=== PATIENT | male | born 1955 | race Caucasian/White ===

== ENCOUNTER 2016-11-03 12:37 | Emergency (ER) | payer MEDICARE, OTHER ==
[~2016-11-03] VITALS: Ht 182.9 cm; Wt 117.9 kg
[~2016-11-03 12:37] MED LIST: CARI350T PO; CLON2TAB PO; ESCI5TAB PO; MORP15TA PO
[2016-11-03] MEDS ORDERED: KETOROLAC TROMETHAMINE INJ 30 MG/ML VIAL IV ONE (13:30)
[2016-11-03 13:32] LABS: BASOPHILS # (AUTO) 0.1 /CMM (0.0-0.2); BASOPHILS % (AUTO) 2.2 % (0.0-2.0); DIFF TOTAL % 100 %; EOSINOPHILS # (AUTO) 0.1 /CMM (0.0-0.7); EOSINOPHILS % (AUTO) 2.5 % (0.0-6.0); HEMATOCRIT 39 % (39-51); HEMOGLOBIN 13.4 g/dL (13.5-17.5); LYMPHOCYTES # (AUTO) 0.9 /CMM (0.8-4.8); LYMPHOCYTES % (AUTO) 29.7 % (20.0-44.0); MEAN CORPUSCULAR HEMOGLOBIN 32 PG (26.0-33.0); MEAN CORPUSCULAR HGB CONC 34 g/dl (31.0-36.0); MEAN CORPUSCULAR VOLUME 93 fL (80-96); MONOCYTES # (AUTO) 0.2 /CMM (0.1-1.30); MONOCYTES % (AUTO) 7.8 % (2.0-12.0); NEUTROPHILS # (AUTO) 1.7 /CMM (1.8-8.9); NEUTROPHILS % (AUTO) 57.8 % (43.0-81.0); PLATELET COUNT (AUTO) 75 /CMM (150-450)
[2016-11-03] MEDS ORDERED: KETOROLAC TROMETHAMINE INJ 30 MG/ML VIAL ONE ×2 (13:39→13:45)
[2016-11-03 13:43] LABS: CALCIUM, SERUM 7.7 mg/dL (8.5-10.1); CREATININE 0.9 mg/dL (0.6-1.3); POTASSIUM 3.6 mmol/L (3.5-5.1)
[2016-11-03 13:49] LABS: BILIRUBIN,DIRECT 0.1 mg/dL (0.0-0.2); BILIRUBIN,TOTAL 0.3 mg/dL (0.2-1.0); INDIRECT BILIRUBIN 0.2 mg/dL (0.0-1.1); TOTAL PROTEIN, SERUM 6.4 g/dL (6.4-8.2)
[2016-11-03 14:49] VITALS: BP 125/75
[2016-11-03 15:10] LABS: EOSINOPHILS % (MANUAL) 2 % (0-4); LYMPHOCYTES % (MANUAL) 27 % (16-48); PLATELET ESTIMATE DECREASED
[2016-11-03 15:11] LABS: ANISOCYTOSIS 1+
== END 2016-11-03 14:52 | disposition home or self-care (01) ==
LOC: ER 12:39
DX: M54.5 Low back pain (principal); I10 Essential (primary) hypertension; I50.9 Heart failure, unspecified; J45.909 Unspecified asthma, uncomplicated; E11.9 Type 2 diabetes mellitus without complications; G62.9 Polyneuropathy, unspecified; F41.0 Panic disorder [episodic paroxysmal anxiety]; Z95.811 Presence of heart assist device; Z86.73 Personal history of transient ischemic attack (TIA), and cerebral infarction without residual deficits; F17.210 Nicotine dependence, cigarettes, uncomplicated; F10.10 Alcohol abuse, uncomplicated
CPT/HCPCS: 36415; 80048; 80076; 82553; 85025; 96374; 99284; A4606; J1885 ×2; Z7610

== ENCOUNTER 2017-01-30 20:29 | Emergency (ER) | payer MEDICARE, OTHER ==
[~2017-01-30] VITALS: Ht 182.9 cm; Wt 113.4 kg
--- NOTE | 2017-01-30 20:50 | NUR ---
PT PRESENTED TO THE ER WITH A C/O COUGH WITH CONGESTION. PT IS SATURATING AT 97% ON RA. PT HAS BILATERAL RHONCHI NOTED. PT IS A PACK A DAY SMOKER. PT USES A CANE TO AMBULATE. PT IS ON YOANNA MONITOR AND CONTINOUS PULSE OX.
[2017-01-30 20:57] LABS: BASOPHILS % (AUTO) 0.4 % (0.0-2.0); EOSINOPHILS # (AUTO) 0.1 /CMM (0.0-0.7); EOSINOPHILS % (AUTO) 1.4 % (0.0-6.0); HEMATOCRIT 38 % (39-51); HEMOGLOBIN 13.2 g/dL (13.5-17.5); MEAN CORPUSCULAR HEMOGLOBIN 32 PG (26.0-33.0); MEAN CORPUSCULAR HGB CONC 34 g/dl (31.0-36.0); MEAN CORPUSCULAR VOLUME 93 fL (80-96); MONOCYTES # (AUTO) 0.4 /CMM (0.1-1.30); MONOCYTES % (AUTO) 10.3 % (2.0-12.0); NEUTROPHILS # (AUTO) 2.5 /CMM (1.8-8.9); NEUTROPHILS % (AUTO) 62.9 % (43.0-81.0); PLATELET COUNT (AUTO) 71 /CMM (150-450); RDW COEFFICIENT OF VARIATION 12.5 (11.5-15.0); RED BLOOD CELL COUNT(AUTO) 4.12 MIL/uL (4.5-6.0)
[2017-01-30 21:06] LABS: CALCIUM, SERUM 8.6 mg/dL (8.5-10.1); CARBON DIOXIDE 25 mmol/L (21-32); CHLORIDE 103 mmol/L (98-107); CREATININE 0.9 mg/dL (0.6-1.3); GFR 86 mL/min (>60); GLUCOSE 106 mg/dL (74-106); POTASSIUM 4.3 mmol/L (3.5-5.1); SODIUM SERUM 135 mmol/L (136-145); UREA NITROGEN, BLOOD 20 mg/dL (7-18)
[2017-01-30 21:12] LABS: INR 0.95 (0.87-1.13); PROTHROMBIN TIME 9.9 SECS (9.5-12.7)
[2017-01-30 21:15] LABS: TROPONIN I < 0.017 ng/mL (0.00-0.056)
[2017-01-30 21:19] LABS: B-TYPE NATRIURETIC PEPTIDE 114 PG/ML (0-125)
[2017-01-30] MEDS ORDERED: methylPREDNISolone SOD SUCC 125 MG/2ML VIAL IV ONE (21:30)
[2017-01-30] MEDS ORDERED: LORAZEPAM 1 MG TABLET PO ONE (21:30)
[2017-01-30] MEDS ORDERED: ALBUTEROL FS 2.5 MG/3 ML VIAL.NEB NEB ONE (21:30)
[2017-01-30] MEDS ORDERED: IPRATROPIUM NEB FS 0.5 MG/2.5 ML AMPUL.NEB NEB ONE (21:30)
[2017-01-30] MEDS ORDERED: IPRATROPIUM NEB FS 0.5 MG/2.5 ML AMPUL.NEB ONE (21:38)
[2017-01-30] MEDS ORDERED: ALBUTEROL FS 2.5 MG/3 ML VIAL.NEB ONE (21:38)
--- NOTE | 2017-01-30 21:40 | NUR ---
BREATHING TX STARTED.
[2017-01-30 21:41] LABS: BAND % (MANUAL) 3 % (0.0-5.0); BASOPHILS % (MANUAL) 0 % (0.0-2.0); EOSINOPHILS % (MANUAL) 2 % (0-4); LYMPHOCYTES % (MANUAL) 24 % (16-48); MONOCYTES % (MANUAL) 3 % (0-11.0); NEUTROPHILS % (MANUAL) 68 (42-76)
[2017-01-30] MEDS ORDERED: LORAZEPAM 1 MG TABLET ONE (21:41)
[2017-01-30] MEDS ORDERED: methylPREDNISolone SOD SUCC 125 MG/2ML VIAL ONE (21:41)
[2017-01-30 21:42] LABS: PLATELET ESTIMATE DECREASED
[2017-01-30 22:01] VITALS: BP 135/66
--- NOTE | 2017-01-30 22:01 | NUR ---
IV removed. Catheter intact and site benign. Pressure and 4x4 applied to site. No bleeding noted.Patient discharged to home in stable condition. Written and verbal after care instructions given. Patient verbalizes understanding of instruction AND RX. PT AMBULATED OUT USING HIS CANE. PT IS TAKING THE BUS HOME. DR. BEDOYA IS AWARE.
== END 2017-01-30 22:02 | disposition home or self-care (01) ==
LOC: ER 20:35
DX: J44.0 Chronic obstructive pulmonary disease with (acute) lower respiratory infection (principal); J20.9 Acute bronchitis, unspecified; F17.210 Nicotine dependence, cigarettes, uncomplicated; I10 Essential (primary) hypertension; G40.909 Epilepsy, unspecified, not intractable, without status epilepticus; I50.9 Heart failure, unspecified; J45.909 Unspecified asthma, uncomplicated; E11.9 Type 2 diabetes mellitus without complications; G62.9 Polyneuropathy, unspecified; G89.29 Other chronic pain; Z86.73 Personal history of transient ischemic attack (TIA), and cerebral infarction without residual deficits
CPT/HCPCS: 36415; 71010; 80048; 83880; 84484; 85025; 85730; 93005; 94640 ×2; 96374; 99285; A4606; J2930; Z7610

== ENCOUNTER 2019-12-10 12:29 | Inpatient (IN) | payer MEDICARE, MEDICAID ==
[~2019-12-10] VITALS: Ht 185.4 cm; Wt 108.4 kg
[2019-12-10] VITALS (7 sets, daily range): BP systolic 120–145; BP diastolic 68–98
--- NOTE | 2019-12-10 12:30 | NUR ---
PT BIBRA 39 FROM HOME C/O HIGH BLOOD SUGAR HI ON THE GLUCOMETER, PT IS AAOX4, NOT IN RESPIRATORY DISTRESS, HOOKED TO MNITOR, KEPT RESTED AND COMFORTABLE, WILL CONTINUE TO MONITOR.
--- NOTE | 2019-12-10 12:37 | NUR ---
SEEN AND EXAMINED BY ESTER GRIJALVA NP.
--- NOTE | 2019-12-10 12:40 | NUR ---
IV LINE ESTABLISHED, BLOOD DRAWN AND SENT TO LAB.
--- NOTE | 2019-12-10 12:45 | NUR ---
URINE SPECIMEN COLLECTED AND SENT TO LAB.
[2019-12-10] MEDS ORDERED: KETOROLAC TROMETHAMINE INJ 30 MG/ML VIAL ONE (12:54)
[2019-12-10 12:59] LABS: BASOPHILS # (AUTO) 0.1 /CMM (0.0-0.2); BASOPHILS % (AUTO) 1.2 % (0.0-2.0); EOSINOPHILS % (AUTO) 0.5 % (0.0-6.0); HEMATOCRIT 45 % (39-51); HEMOGLOBIN 15.2 g/dL (13.5-17.5); LYMPHOCYTES # (AUTO) 1.5 /CMM (0.8-4.8); LYMPHOCYTES % (AUTO) 20.2 % (20.0-44.0); MEAN CORPUSCULAR HGB CONC 33 g/dl (31.0-36.0); MEAN CORPUSCULAR VOLUME 93 fL (80-96); MONOCYTES % (AUTO) 13.2 % (2.0-12.0); NEUTROPHILS # (AUTO) 4.8 /CMM (1.8-8.9); NEUTROPHILS % (AUTO) 64.9 % (43.0-81.0); PLATELET COUNT (AUTO) 94 /CMM (150-450); RED BLOOD CELL COUNT(AUTO) 4.88 MIL/uL (4.5-6.0); WHITE BLOOD COUNT (AUTO) 7.4 K/uL (4.3-11.0)
[2019-12-10] MEDS ORDERED: KETOROLAC TROMETHAMINE INJ 30 MG/ML VIAL IV ONE (13:00)
[2019-12-10] MEDS ORDERED: IV NS 0.9% 1,000 ML BAG IV ONE ×2 (13:00→13:30)
[2019-12-10 13:01] LABS: APPEARANCE,URINE Clear (CLEAR); BILIRUBIN,URINE Negative (NEGATIVE); BLOOD, URINE Negative Ery/uL (NEGATIVE); COLOR,URINE Yellow (YELLOW); KETONES,URINE Negative (NEGATIVE); LEUKOCYTE ESTERASE ,URINE Negative (NEGATIVE); NITRITE, URINE Negative (NEGATIVE); PROTEIN,URINE Negative (NEGATIVE); UGLUCOSE >=1000 mg/dL (NEGATIVE); UROBILINOGEN,URINE 0.2 EU/dL (0.2)
[2019-12-10 13:03] LABS: BACTERIA,URINE Rare /HPF (None Seen); RBC,URINE 0-2 /HPF (0-2); SQUAMOUS EPITHELIAL CELL,UR Few /HPF (None Seen); WBC,URINE 0-2 /HPF (0-3)
[2019-12-10 13:14] LABS: ALBUMIN 3.3 g/dL (3.4-5.0); BILIRUBIN,DIRECT 0.4 mg/dL (0.0-0.2); BILIRUBIN,TOTAL 1.1 mg/dL (0.2-1.0); CALCIUM, SERUM 9.1 mg/dL (8.5-10.1); CREATININE 1.6 mg/dL (0.6-1.3); POTASSIUM 4.4 mmol/L (3.5-5.1); TOTAL PROTEIN, SERUM 7.4 g/dL (6.4-8.2)
[2019-12-10] MEDS ORDERED: INSULIN REGULAR, HUMAN 100 UNIT/ML 10 ML VIAL ONE (13:24)
[2019-12-10] MEDS ORDERED: INSULIN REGULAR, HUMAN 100 UNIT/ML 10 ML VIAL SQ ONE (13:30)
[2019-12-10 13:32] LABS: BAND % (MANUAL) 1 % (0.0-5.0); EOSINOPHILS % (MANUAL) 2 % (0-4); LYMPHOCYTES % (MANUAL) 22 % (16-48); MONOCYTES % (MANUAL) 12 % (0-11.0); NEUTROPHILS % (MANUAL) 63 (42-76)
[2019-12-10] MEDS ORDERED: ATOR10TA PO (13:32)
[2019-12-10] MEDS ORDERED: GUAI100S11 PO (13:32)
[2019-12-10] MEDS ORDERED: FLUT16SP16 (13:32)
[2019-12-10] MEDS ORDERED: CLON2TAB11 PO (13:32)
[2019-12-10] MEDS ORDERED: PHEN100C12 PO (13:32)
[2019-12-10] MEDS ORDERED: METF-442 PO (13:32)
[2019-12-10] MEDS ORDERED: [UNRECOGNIZED DRUG - REMARK] SQ (13:34)
[2019-12-10 13:45] LABS: PHOSPHORUS 4.2 mg/dL (2.5-4.9)
--- NOTE | 2019-12-10 13:51 | NUR ---
EWA BROWN [phone] ---- CELL [phone]
--- NOTE | 2019-12-10 13:54 | NUR ---
CALLED NURSING SUPP FOR TELE BED.
--- NOTE | 2019-12-10 13:54 | NUR ---
CALLED FOR TELE BED AND SUBMITTED MOVE SHEET TO ADMITTING.
--- NOTE | 2019-12-10 14:28 | NUR ---
GOT [phone]
--- NOTE | 2019-12-10 14:29 | NUR ---
JUICE MIXER AT BEDSIDE FOR XRAY.
[2019-12-10] MEDS ORDERED: IV NS 0.9% 100 ML IV SCH (14:30)
[2019-12-10] MEDS ORDERED: BLOOD SUGAR DIAGNOSTIC 1 EACH STRIP MC SCH (14:30)
[2019-12-10] MEDS ORDERED: ONDANSETRON HCL/PF 4 MG/2 ML VIAL IV PRN (14:30)
[2019-12-10] MEDS ORDERED: BLOOD SUGAR DIAGNOSTIC 1 EACH STRIP IN SCH (14:30)
[2019-12-10] MEDS ORDERED: ACETAMINOPHEN 650 MG/20.3 ML UDC PO PRN (14:30)
[2019-12-10] MEDS ORDERED: DEXTROSE 50%-WATER 50 ML DISP.SYRIN IV PRN (14:30)
[2019-12-10] MEDS ORDERED: INSULIN REGULAR, HUMAN 100 UNIT/ML 3 ML VIAL SQ PRN (14:30)
[2019-12-10] MEDS ORDERED: IPRATROPIUM NEB FS 0.5 MG/2.5 ML AMPUL.NEB NEB PRN (15:00)
[2019-12-10] MEDS ORDERED: LEVALBUTEROL HCL NEB 1.25 MG/0.5 ML VIAL.NEB NEB PRN (15:00)
[2019-12-10] MEDS ORDERED: INSULIN GLARGINE, 100 UNIT/ML CARTRIDGE SQ SCH (15:00)
[2019-12-10] MEDS ORDERED: FLUTICASONE PROPIONATE 16 GM BOTTLE NS PRN (15:00)
[2019-12-10] MEDS ORDERED: GUAIFENESIN 300 MG/15 ML UDC PO PRN (15:00)
[2019-12-10] MEDS ORDERED: clonazePAM 2 MG TABLET PO PRN (15:00)
--- NOTE | 2019-12-10 15:00 | NUR ---
TECH AT BEDSIDE FOR US.
--- NOTE | 2019-12-10 15:05 | NUR ---
REPORT GIVEN TO SUPRIYA VILLA.
[2019-12-10] MEDS ORDERED: ALBUTEROL FS 2.5 MG/0.5 ML VIAL.NEB NEB PRN (15:30)
[2019-12-10] MEDS: ALBUTEROL FS 2.5 MG/0.5 ML VIAL.NEB NEB SCH ×2 (15:30→23:30)
[2019-12-10] MEDS ORDERED: LEVALBUTEROL HCL NEB 1.25 MG/0.5 ML VIAL.NEB NEB SCH (15:30)
[2019-12-10] MEDS: IPRATROPIUM NEB FS 0.5 MG/2.5 ML AMPUL.NEB NEB SCH ×2 (15:30→23:30)
[2019-12-10] MEDS ORDERED: ENOXAPARIN SODIUM 40 MG/0.4 ML DISP.SYRIN SQ SCH (16:00)
--- NOTE | 2019-12-10 16:01 | NUR ---
PER ADMITTING MD BROWN. PT BE UPGRADED TO ICU. AND CALL ADMITTING DR FOR INSULIN DRIP ORDER.
--- NOTE | 2019-12-10 16:01 | NUR ---
Chip Osorio M.D. Office Address [address] [facility] [address] [place] [address] Office
[2019-12-10] MEDS ORDERED: AZITHROMYCIN 500 MG in IV D5W 250 ML IV SCH (17:00)
[2019-12-10] MEDS ORDERED: PHENYTOIN EXTENDED RELEASE 100 MG CAPSULE PO SCH (17:00)
--- NOTE | 2019-12-10 17:23 | NUR ---
REPORT GIVEN TO MORENA EPPS AT ICU. PT TRANSPORTED. STABLE GUARDED.
[2019-12-10] MEDS: IV NS 0.9% 1,000 ML IV PRN (17:28)
[2019-12-10] MEDS ORDERED: INSULIN ASPART/LISPRO 100 UNIT/ML CARTRIDGE SQ SCH (17:30)
[2019-12-10] MEDS: ATORVASTATIN 10 MG TABLET PO SCH (17:36)
--- NOTE | 2019-12-10 17:45 | NUR ---
NEEDLE MOLDER NOTE RECEIVED PATIENT FROM ER WITH DX HYPERGLYCEMIA AND HYPERNATREMIA, UNDER CARE DR BROWN ,ALERT ORIENTED X3, PLACED ON TELE MONITOR SR HR 93 , BELONGING CHECKED , STARTED ON IVF ORDERED AND INSULIN DRIP ORDERED BY DR BROWN , HOSPITAL ORIENTATION DONE ,VS TAKEN ,RESPIRATION EVEN UNLABORED, BED IN LOWEST AND LOCKED POSITION , CALL LIGHT WITHIN REACH , , PLAN OF CARE DISCUSSED WITH PATIENT, WILL CONT TO MONITOR CLOSELY
--- NOTE | 2019-12-10 17:45 | NUR ---
VERIFIED ADMISSION ORDERS BY DR. LEIGHA BROWN, START INSULIN GTT 5UNITS/HR THEN FOLLOW NON DKA ALG. 1 INSULIN DRIP PROTOCOL. OKAY TO RESUME PATIENT DIET ORDERED.
[2019-12-10] MEDS ORDERED: INSULIN REGULAR, HUMAN 100 UNIT in IV NS 0.9% 99 ML IV PRN ×2 (18:00)
[2019-12-10] MEDS: PANTOPRAZOLE 40 MG TABLET.DR PO SCH (18:12)
[2019-12-10] MEDS: ASPIRIN EC 81 MG TABLET.DR PO SCH (18:12)
--- NOTE | 2019-12-10 18:20 | NUR ---
INSULIN DRIP STARTED AT 5 UNITS/HR- BS 548.
--- NOTE | 2019-12-10 18:21 | NUR ---
FINAL INSPECTOR NOTE , ABLE TO EAT SELF ,HAVING DINNER
--- NOTE | 2019-12-10 18:25 | NUR ---
PHARMACY CALLED RE: ANTIBIOTICS ROCEPHIN AND ZITHROMAX NOT AVAILABLE YET, TO DELIVER.
[2019-12-10] MEDS: ZITHROMAX 500 MG/250 ML D5W IV SCH ×2 (18:59)
[2019-12-10] MEDS: CEFTRIAXONE 1 G in IV D5W 50 ML IV SCH (18:59)
[2019-12-10] MEDS: BLOOD SUGAR DIAGNOSTIC 1 EACH STRIP IN SCH ×5 (19:03→23:13)
--- NOTE | 2019-12-10 19:07 | NUR ---
OVEN HEATER HELPER NOTE BLOOD SUGAR NOW 580 MG\DL PER PROTOCOL, INCREASED INSULIN DRIP AT 6 UNIT ,WILL MONITOR BLOOD SUGAR IN 1 HOUR PER PROTOCOL
--- NOTE | 2019-12-10 19:30 | NUR ---
INTAKE COUNSELOR NOTE, RECEIVED PATIENT AWAKE, ALERT ORIENTED X3, AT ROOM AIR, BREATHING EVEN AND UNLABORED, NO SOB/ACUTE DISTRESS NOTED AT THI TIME, NSR IN TELE MONITOR WITH HR IN 80S AT THIS TIME, IVF AND INSULIN DRIP INFUSING AT THIS TIME ORDERED, ALSO VANCOMYCIN INFUSING AT THIS TIME, BED IN LOWEST AND LOCKED POSITION , CALL LIGHT WITHIN REACH , WILL CONTINUE TO MONITOR CLOSELY.
--- NOTE | 2019-12-10 20:08 | NUR ---
SUPRIYA NOTES, BLOOD SUGAR LEVEL AT 1999 580MG/dL, SWITCH TO ALGORITHM #2 PER PROTOCOL, WILL CONTINUE TO MONITOR CLOSELY. Addendum: 12/10/19 at 2108 by JAYCEE HUNG RN INCREASED FROM 6UNITS TO 10UNITS.
[2019-12-10 20:50] LABS: PHOSPHORUS 3.5 mg/dL (2.5-4.9); POTASSIUM 3.6 mmol/L (3.5-5.1)
--- NOTE | 2019-12-10 21:05 | NUR ---
SUPRIYA NOTES, BLOOD SUGAR LEVEL AT 2100 521MGdL, SWITCH TO ALGORITHM #3 PER PROTOCOL, WILL CONTINUE TO MONITOR CLOSELY. Addendum: 12/10/19 at 2109 by JAYCEE HUNG RN INCREASED FROM 10 UNITS TO 16 UNITS.
--- NOTE | 2019-12-10 22:08 | NUR ---
RN NOTE. BLOOD SUGAR IS 399. PT ON SAME DOSE INSULIN DRIP 16 UNITS,. WILL CONTINUE TO MONITOR.
[2019-12-10] MEDS ORDERED: POTASSIUM CHLORIDE 20 MEQ TAB.PRT.SR PO ONE (22:30)
--- NOTE | 2019-12-10 22:30 | NUR ---
RN NOTES, DR BROWN CALLED TO GET REPORT FOR PATIENT CONDITION AND LABS, PER MD TO INCREASED IVF TO 150ML/HR, AND GIVE KCL 40MEQ POX1 NOW AND SAME DOSE IN 4HRS, ALSO ASKED MD IF HE WANTS TO KEEP PATIENT NPO AT THIS TIME, SINCE BLOOD SUGAR STILL HIGH, AND PER MD PATIENT CAN EAT, NO NEED FOR NPO, NOTED AND CARRIED OUT.
[2019-12-10 23:39] LABS: POTASSIUM 3.5 mmol/L (3.5-5.1)
[2019-12-11] VITALS (13 sets, daily range): BP systolic 95–137; BP diastolic 53–73
--- NOTE | 2019-12-11 00:05 | NUR ---
RN NOTES, BLOOD SUGAR LEVEL 297MG/DL, INSULIN DRIP DECREASED FROM 14U TO 10U, WILL CONTINUE TO MONITOR CLOSELY.
[2019-12-11] MEDS: BLOOD SUGAR DIAGNOSTIC 1 EACH STRIP IN SCH ×8 (00:07→21:47)
[2019-12-11] MEDS: IV NS 0.9% 1,000 ML IV PRN ×2 (01:53→11:23)
--- NOTE | 2019-12-11 02:14 | NUR ---
RN NOTES, BLOOD SUGAR LEVEL AT 0200 209MG/DL AT THIS TIME, DECREASED INSULIN DRIP FROM 12 TO 5U. WILL CONT TO MONITOR CLOSELY.
--- NOTE | 2019-12-11 04:12 | NUR ---
RN NOTES, CALLED DR BROWN AND INFORMED THAT PATIENT BLOOD SUGAR LEVEL IS 144MG/DL AT 0400, PER MD TO DC INSULIN DRIP COMPLETELY, CONTINUE CHECKING BLOOD SUGAR Q1HR FOR 2 MORE HOURS, AND AFTER THAT ACCUCHECK Q4HRS WITH MODERATE SLIDING SCALE WITH NOVOLOG COVERAGE, PLUS LANTUS 20 UNITS QAM, NOTED AND CARRIED OU, WILL CONTINUE TO MONITOR CLOSELY.
[2019-12-11] MEDS ORDERED: DEXTROSE 50%-WATER 50 ML DISP.SYRIN IV PRN ×5 (04:30→08:40)
[2019-12-11] MEDS ORDERED: INSULIN ASPART/LISPRO 100 UNIT/ML CARTRIDGE SQ PRN (05:00)
[2019-12-11] MEDS ORDERED: BLOOD SUGAR DIAGNOSTIC 1 EACH STRIP IN SCH ×4 (05:00→08:00)
--- NOTE | 2019-12-11 05:10 | NUR ---
RN NOTES, ACCUCHEK DONE AT 0500 PER MD, WITH BLOOD SUGAR LEVEL 170MG/DL, ONE MORE ACCUCHECK AT 0600, AND AFTER THAT Q4HRS PER DR BROWN, ALSO PER MD TO DECREASED THE IVF FROM 150ML/HR TO 80ML/HR.
[2019-12-11 05:48] LABS: BASOPHILS % (AUTO) 0.6 % (0.0-2.0); EOSINOPHILS % (AUTO) 1.9 % (0.0-6.0); HEMATOCRIT 39 % (39-51); HEMOGLOBIN 13.8 g/dL (13.5-17.5); LYMPHOCYTES # (AUTO) 1.4 /CMM (0.8-4.8); LYMPHOCYTES % (AUTO) 32.1 % (20.0-44.0); MEAN CORPUSCULAR HGB CONC 35 g/dl (31.0-36.0); MEAN CORPUSCULAR VOLUME 89 fL (80-96); MONOCYTES # (AUTO) 0.4 /CMM (0.1-1.30); MONOCYTES % (AUTO) 9.8 % (2.0-12.0); NEUTROPHILS # (AUTO) 2.5 /CMM (1.8-8.9); NEUTROPHILS % (AUTO) 55.6 % (43.0-81.0); PLATELET COUNT (AUTO) 63 /CMM (150-450); WHITE BLOOD COUNT (AUTO) 4.5 K/uL (4.3-11.0)
[2019-12-11] MEDS ORDERED: POTASSIUM CHLORIDE 20 MEQ TAB.PRT.SR PO ONE ×2 (06:00→08:30)
[2019-12-11 06:02] LABS: ALANINE AMINOTRANSFERASE 113 U/L (12-78); ALBUMIN 2.7 g/dL (3.4-5.0); ALKALINE PHOSPHATASE 104 U/L (46-116); ASPARTATE AMINOTRANSFERASE 64 U/L (15-37); BILIRUBIN,TOTAL 0.9 mg/dL (0.2-1.0); CALCIUM, SERUM 7.9 mg/dL (8.5-10.1); CARBON DIOXIDE 25 mmol/L (21-32); CHLORIDE 104 mmol/L (98-107); CREATININE 0.9 mg/dL (0.6-1.3); GLUCOSE 159 mg/dL (74-106); POTASSIUM 3.7 mmol/L (3.5-5.1); SODIUM SERUM 138 mmol/L (136-145); TOTAL PROTEIN, SERUM 6.2 g/dL (6.4-8.2); UREA NITROGEN, BLOOD 17 mg/dL (7-18)
[2019-12-11 06:05] LABS: CHOLESTEROL 126 mg/dL (<200); HDL CHOLESTEROL 26 mg/dL (40-60); LDL 75 mg/dL (0-99); THYROID STIMULATING HORMONE 1.362 uIU/mL (0.358-3.74); TRIGLYCERIDES 163 mg/dL (30-150)
--- NOTE | 2019-12-11 06:20 | NUR ---
RN NOTES, ACCUCHECK DONE AT THIS TIME, WITH BLOOD SUGAR LEVEL 201MG/DL, DONE WITH Q1HR ACCUCHECK AT THI TIME, PER KEVIN, Q4RS AFTER WITH MODERATE SLIDING SCALE WITH NOVOLOG INSULIN COVERAGE.
[2019-12-11 06:24] LABS: PHENYTOIN (DILANTIN) 2.3 ug/ml (10.0-20.0)
--- NOTE | 2019-12-11 06:57 | NUR ---
RN NOTES, S/P INSULIN DRIP, AND NOW WILL BE Q4HRS ACCUCHECK WITH MODERATE SLIDING SCALE COVERAGE WITH NOVOLOG, WILL ENDORSE CONTINUITY OF CARE TO ONCOMING NURSE, NO CHANGE IN LOC, PATIENT ALERT AND ORIENTED AN VERBALLY RESPONSIVE, NO CHANGE IN COGNITION DURING THE NIGHT.
[2019-12-11] MEDS: IPRATROPIUM NEB FS 0.5 MG/2.5 ML AMPUL.NEB NEB SCH ×3 (07:49→23:39)
[2019-12-11] MEDS: ALBUTEROL FS 2.5 MG/0.5 ML VIAL.NEB NEB SCH ×3 (07:49→23:39)
[2019-12-11] MEDS ORDERED: INSULIN REGULAR, HUMAN 100 UNIT/ML 3 ML VIAL SQ PRN ×3 (08:00→08:30)
--- NOTE | 2019-12-11 08:00 | NUR ---
ICU/RN AM SHIFT OPENING NOTES RECEIVED PT AWAKE SITING IN BED EATING HIS BREAKFAST, PT A/O X 2-4, NO ACUTE CHANGE OF CONDITION NOTED. ON ROOM AIR SATURATING @ 96%, LUNG SOUNDS CLEAR. RESPIRATIONS EVEN & UNLABORED. ON TELE WITH SINUS RHYTHM, HR 92. WITH ON GOING IV INFUSION OF NS @ 80CC/HR, IV SITE PATENT WITH NO S/S OF INFECTION. BS CHECKED, 198, NO S/S OF HYPERGLYCEMIA, INSULIN COVERAGE TO BE GIVEN PER SLIDING SCALE. PLAN OF CARE EXPLAINED TO PT, VERBALIZED UNDERSTANDING. SCHEDULED AM MEDS TO BE GIVEN. CL WITHIN REACHED AND SAFETY MAINTAINED. ON GOING MONITORING.
--- NOTE | 2019-12-11 08:12 | NUR ---
ICU/RN ROUNDS - DR. BROWN PT SEEN & EXAMINED BY DR. BROWN. PER MD WILL CHANGE BLOOD CHECK AC & HS USING THE SAME SLIDING SCALE AND HUMALOG, AND 18 UNITS LATUS DAILY. NOTED. PT DENIES ANY SYMPTOMS, NOT SHOWING SIGNS OF HYPERGLYCEMIA, ON GOING MONITORING.
[2019-12-11] MEDS: PANTOPRAZOLE 40 MG TABLET.DR PO SCH ×2 (08:24→17:19)
[2019-12-11] MEDS: ASPIRIN EC 81 MG TABLET.DR PO SCH (08:24)
[2019-12-11] MEDS ORDERED: INSULIN ASPART/LISPRO 100 UNIT/ML CARTRIDGE SQ SCH (08:30)
[2019-12-11] MEDS ORDERED: *INSULIN REGULAR(HUMULIN R)HUM 100 UNIT/ML VIAL SQ PRN ×2 (08:30)
[2019-12-11] MEDS: PHENYTOIN EXTENDED RELEASE 100 MG CAPSULE PO SCH ×2 (08:46→17:19)
--- NOTE | 2019-12-11 08:55 | NUR ---
WOUND CARE CONSULT: PT PRESENTS CONTINENT AT THIS TIME AND ABLE TO TURN AND REPOSITION IN BED. CURRENT SAROJ SCORE IS 17. PT PRESENTS WITH RT LATERAL ANKLE CALLUS AND LEFT FOOT THICKENED SKIN TO ANTERIOR ANKLE/FOOT AREA, PRESENT ON ADMISSION. PT STATES WILL FOLLOW UP WITH HIS OWN DPM AFTER DISCHARGE. WILL SEE PRN. Addendum: 12/11/19 at 0856 by CASEY FONTENOT WNDNU Amended: Links added.
[2019-12-11] MEDS ORDERED: INSULIN GLARGINE, 100 UNIT/ML CARTRIDGE SQ SCH (09:00)
--- NOTE | 2019-12-11 10:24 | NUR ---
ICU/RN REPORT - 3 WEST REPORT GIVEN TO NURSE FAROOQ PT TO BE DOWNGRADED, MOVE TO ROOM 325#2. PT ENDORSED TO CONTINUE CARE.
--- NOTE | 2019-12-11 10:55 | NUR ---
RN NOTES RECEIVED PATIENT FROM ICU NURSE VIA WHEELCHAIR. PATIENT WAS ORIENTED TO ROOM. CALL LIGHT IS WITHIN REACH. BED IS IN LOWEST LOCKED POSITION WITH SIDE RAILS UP X2, SEMI FOWLERS. PATIENT IS AMBULATORY AND USES A WALKER. PATIENT IS A/O X4. PATIENT DENIED ANY PAIN AND APPEARED COMFORTABLE. NO SOB/ RESPIRATORY DISTRESS NOTED. WILL CONTINUE TO MONITOR.
--- NOTE | 2019-12-11 11:04 | NUR ---
ICU/CONSULTANT INTERNSHIP 352 # 2 PT TRANSFERRED TO [facility] VIA WHEELCHAIR IN STABLE CONDITION.
[2019-12-11] MEDS ORDERED: BLOOD SUGAR DIAGNOSTIC 1 EACH STRIP VI SCH ×2 (12:00)
[2019-12-11] MEDS: INSULIN ASPART/LISPRO 100 UNIT/ML CARTRIDGE SQ PRN ×2 (12:52→21:54)
[2019-12-11] MEDS: clonazePAM 1 MG TABLET PO PRN (16:28)
[2019-12-11] MEDS: CEFTRIAXONE 1 G in IV D5W 50 ML IV SCH (16:33)
[2019-12-11] MEDS: INSULIN GLARGINE, 100 UNIT/ML CARTRIDGE SQ SCH (17:26)
[2019-12-11] MEDS: INSULIN ASPART/LISPRO 100 UNIT/ML CARTRIDGE SQ SCH (17:31)
[2019-12-11] MEDS: ZITHROMAX 500 MG/250 ML D5W IV SCH ×2 (17:56)
[2019-12-11] MEDS: ATORVASTATIN 10 MG TABLET PO SCH (18:02)
--- NOTE | 2019-12-11 18:59 | NUR ---
RN CLOSING NOTES PATIENT IS CURRENTLY LAYING DOWN WATCHING TV. REMOVED PATIENT'S LEFT FOREARM IV DUE TO INFILTRATION AND APPLIED ICE. CALL LIGHT WITHIN REACH. BED IN LOWEST LOCKED POSITION WITH SIDE RAILS UP X2. PATIENT IS A/O X3-4. PATIENT IS ON ROOM AIR, NO SOB/ RESPIRATORY DISTRESS NOTED. WILL ENDORSE REPORT TO NIGHT NURSE.
[2019-12-11] MEDS: HYDROCODONE/APAP 5/325MG 1 EACH TABLET PO PRN (19:45)
--- NOTE | 2019-12-11 20:06 | NUR ---
RN OPENING NOTES: RECEIVED PATIENT AT 1920,SITTING AT THE EDGE OF THE BED, A/O X4 NO SOB NOTED, COMPLAINING OF LEFT FOREARM PAIN ON THE PREVIOUS IV SITE, WITH ICE PACK, PATIENT TAKES IT OFF ONCE IN A WHILE. AMBULATORY, STEADY, REFUSED TO USE THE WALKER AT THE BEDSIDE. LEFT FOREARM STILL SWOLLEN. CALL LIGHT WITHIN REACH. BED IN LOWEST AND LOCKED POSITION.
--- NOTE | 2019-12-11 21:12 | NUR ---
V/S TAKEN BY ELVA AT 2000.RECORDED.
[2019-12-11] MEDS: MORPHINE SULFATE INJ 2 MG/ML DISP.SYRIN IV PRN (23:30)
[2019-12-12] VITALS: BP 114/72
[2019-12-12] MEDS: IV NS 0.9% 1,000 ML IV PRN (02:28)
--- NOTE | 2019-12-12 06:19 | NUR ---
RN CLOSING NOTES: PATIENT IS RESTING IN BED, A/O X4. NO SOB NOTED. NO COMPLAIN OF PAIN. CALL LIGHT WITHIN REACH. BED IN LOWEST AND LOCKED POSITION.
[2019-12-12 06:28] LABS: BASOPHILS % (AUTO) 0.6 % (0.0-2.0); EOSINOPHILS % (AUTO) 2.2 % (0.0-6.0); HEMATOCRIT 39 % (39-51); HEMOGLOBIN 13.3 g/dL (13.5-17.5); LYMPHOCYTES # (AUTO) 0.8 /CMM (0.8-4.8); MEAN CORPUSCULAR HGB CONC 34 g/dl (31.0-36.0); MEAN CORPUSCULAR VOLUME 91 fL (80-96); MONOCYTES # (AUTO) 0.2 /CMM (0.1-1.30); MONOCYTES % (AUTO) 8.3 % (2.0-12.0); NEUTROPHILS # (AUTO) 1.2 /CMM (1.8-8.9); NEUTROPHILS % (AUTO) 52.9 % (43.0-81.0); RED BLOOD CELL COUNT(AUTO) 4.26 MIL/uL (4.5-6.0); WHITE BLOOD COUNT (AUTO) 2.2 K/uL (4.3-11.0)
--- NOTE | 2019-12-12 06:30 | NUR ---
PATIENT IS ANGRY. PATIENT TOOK OFF THE TELE MONITOR LEADS AND GOWN AND PUT ON HIS OWN CLOTHES, AND HE SAID HE WANTS TO GO OUTSIDE TO SMOKE, CHARGE NURSE REI MADE AWARE.
[2019-12-12 06:38] LABS: ALBUMIN 2.5 g/dL (3.4-5.0); BILIRUBIN,TOTAL 0.7 mg/dL (0.2-1.0); CALCIUM, SERUM 7.6 mg/dL (8.5-10.1); CREATININE 0.8 mg/dL (0.6-1.3); POTASSIUM 4.1 mmol/L (3.5-5.1)
[2019-12-12] MEDS: INSULIN ASPART/LISPRO 100 UNIT/ML CARTRIDGE SQ SCH ×3 (06:46→18:01)
[2019-12-12 06:49] LABS: PLATELET COUNT (AUTO) 49 /CMM (150-450)
--- NOTE | 2019-12-12 07:02 | NUR ---
CRITICAL LAB RESULT-PLATELET OF 49, DR BROWN AWARE, NO ORDERS MADE.
--- NOTE | 2019-12-12 07:10 | NUR ---
ms rn received on bed, awake,alert,oriented x4,not in any form of dis clear,abdomen soft respirations even and unlabored,no sob noted , positive bowel sounds.
[2019-12-12] MEDS ORDERED: INSULIN ASPART/LISPRO 100 UNIT/ML CARTRIDGE SQ SCH (07:30)
[2019-12-12] MEDS: ALBUTEROL FS 2.5 MG/0.5 ML VIAL.NEB NEB SCH ×2 (07:35→15:30)
[2019-12-12] MEDS: IPRATROPIUM NEB FS 0.5 MG/2.5 ML AMPUL.NEB NEB SCH ×2 (07:35→15:30)
[2019-12-12 08:00] VITALS: BP 103/70
[2019-12-12 08:39] LABS: LYMPHOCYTES % (MANUAL) 36 % (16-48); MONOCYTES % (MANUAL) 5 % (0-11.0); NEUTROPHILS % (MANUAL) 59 (42-76)
--- NOTE | 2019-12-12 09:30 | NUR ---
ms [place]ina breakfast served,due meds given,tolerated well.
[2019-12-12] MEDS: PANTOPRAZOLE 40 MG TABLET.DR PO SCH ×2 (09:54→18:00)
[2019-12-12] MEDS: ASPIRIN EC 81 MG TABLET.DR PO SCH (09:54)
[2019-12-12] MEDS: PHENYTOIN EXTENDED RELEASE 100 MG CAPSULE PO SCH ×2 (09:54→18:00)
[2019-12-12] MEDS: METFORMIN 500 MG TABLET PO SCH ×2 (09:56→18:00)
--- NOTE | 2019-12-12 10:00 | NUR ---
ms rn patient is on bed, no distress noted.
[2019-12-12] MEDS: INSULIN GLARGINE, 100 UNIT/ML CARTRIDGE SQ SCH ×2 (10:03→18:04)
[2019-12-12] MEDS: clonazePAM 1 MG TABLET PO PRN ×2 (10:09→20:56)
[2019-12-12] MEDS: BLOOD SUGAR DIAGNOSTIC 1 EACH STRIP IN SCH ×3 (12:52→21:01)
[2019-12-12 16:00] VITALS: BP 117/72
[2019-12-12] MEDS: CEFTRIAXONE 1 G in IV D5W 50 ML IV SCH (16:13)
[2019-12-12] MEDS: ZITHROMAX 500 MG/250 ML D5W IV SCH ×2 (17:38)
[2019-12-12] MEDS: INSULIN ASPART/LISPRO 100 UNIT/ML CARTRIDGE SQ PRN ×2 (18:07→21:07)
[2019-12-12] MEDS: ATORVASTATIN 10 MG TABLET PO SCH (18:07)
--- NOTE | 2019-12-12 18:18 | NUR ---
ms rn on bed,no distress noted.
--- NOTE | 2019-12-12 19:30 | NUR ---
RN PM NOTE BEDSIDE REPORT RECIEVED FROM MARION. PATIENT MED SURGE TELE DC'D EARLIER TODAY. PATIENT SITTING ON BED IN NO APPARENT DISTRESS. IV TO RIGHT FA #22 HEPLOCKED WITH NO S/S OF INFILTRATION. REVIEWED POC. BED DOWN LOCKED SRX2. PATIENT IN NO APPARENT DISTRESS. BED DOWN LOCKED SRX2 WILL CONT TO MONITOR. CALL LIGHT WITHIN REACH. VERBALIZED UNDERSTANDING TO CALL FOR ASSISTANCE IF NEEDED.
[2019-12-12 20:00] VITALS: BP 115/69
[2019-12-12] MEDS: HYDROCODONE/APAP 5/325MG 1 EACH TABLET PO PRN (21:25)
[2019-12-13] MEDS: ALBUTEROL FS 2.5 MG/0.5 ML VIAL.NEB NEB SCH ×2 (00:31→08:32)
[2019-12-13] MEDS: IPRATROPIUM NEB FS 0.5 MG/2.5 ML AMPUL.NEB NEB SCH ×2 (00:31→08:32)
[2019-12-13] MEDS: MORPHINE SULFATE INJ 2 MG/ML DISP.SYRIN IV PRN (00:32)
[2019-12-13] MEDS: HYDROCODONE/APAP 5/325MG 1 EACH TABLET PO PRN (03:17)
[2019-12-13 06:32] LABS: BASOPHILS % (AUTO) 0.8 % (0.0-2.0); EOSINOPHILS % (AUTO) 2.2 % (0.0-6.0); HEMATOCRIT 38 % (39-51); LYMPHOCYTES # (AUTO) 0.7 /CMM (0.8-4.8); LYMPHOCYTES % (AUTO) 34.1 % (20.0-44.0); MEAN CORPUSCULAR HGB CONC 35 g/dl (31.0-36.0); MEAN CORPUSCULAR VOLUME 90 fL (80-96); MONOCYTES # (AUTO) 0.2 /CMM (0.1-1.30); MONOCYTES % (AUTO) 9.9 % (2.0-12.0); NEUTROPHILS # (AUTO) 1.1 /CMM (1.8-8.9); PLATELET COUNT (AUTO) 56 /CMM (150-450); RED BLOOD CELL COUNT(AUTO) 4.17 MIL/uL (4.5-6.0)
[2019-12-13 07:03] LABS: CALCIUM, SERUM 7.9 mg/dL (8.5-10.1); CREATININE 0.8 mg/dL (0.6-1.3); POTASSIUM 4.2 mmol/L (3.5-5.1)
[2019-12-13] MEDS: INSULIN ASPART/LISPRO 100 UNIT/ML CARTRIDGE SQ SCH ×2 (07:12→12:05)
--- NOTE | 2019-12-13 07:41 | NUR ---
MS RN OPENING NOTES RECEIVED PT IN BED, AWAKE, A/O X4, APPEARS ANXIOUS. PT TOLERATING RA, WITH NO ACUTE RESPIRATORY DISTRESS NOTED. PT DENIES ANY PAIN OR DISCOMFORT AT THIS TIME. PT CONCERNED ABOUT GETTING DISCHARGE TODAY EARLY, RN EXPLAINED WE'LL WAIT UNTIL HOSPITALIST COME TO EVALUATE FOR DISCHARGE. PIV TO ANNIE G22, FLUSHED WITH NS, INTACT AND OPERATIONAL. PT KEPT COMFORTABLE. PT'S BED IN LOWEST, LOCKED POSITION WITH SR X3. WILL CONTINUE PLAN OF CARE.
[2019-12-13 08:00] VITALS: BP 107/57
[2019-12-13] MEDS: METFORMIN 500 MG TABLET PO SCH (08:04)
[2019-12-13] MEDS: PANTOPRAZOLE 40 MG TABLET.DR PO SCH (08:05)
[2019-12-13] MEDS: PHENYTOIN EXTENDED RELEASE 100 MG CAPSULE PO SCH (08:05)
[2019-12-13] MEDS: ASPIRIN EC 81 MG TABLET.DR PO SCH (08:05)
[2019-12-13] MEDS: INSULIN GLARGINE, 100 UNIT/ML CARTRIDGE SQ SCH (08:08)
[2019-12-13 08:20] LABS: EOSINOPHILS % (MANUAL) 1 % (0-4); LYMPHOCYTES % (MANUAL) 34 % (16-48); MONOCYTES % (MANUAL) 7 % (0-11.0); NEUTROPHILS % (MANUAL) 58 (42-76)
[2019-12-13] MEDS: clonazePAM 1 MG TABLET PO PRN (09:03)
[2019-12-13] MEDS: BLOOD SUGAR DIAGNOSTIC 1 EACH STRIP IN SCH (12:03)
--- NOTE | 2019-12-13 13:24 | NUR ---
MS RN NOTES PT WISHES TO GO AMA. CALLED TO DR. BROWN'S OFFICE, SPOKE TO ZHANNA AND LEFT A MESSAGE REGARDING PT WISHES.
--- NOTE | 2019-12-13 13:32 | NUR ---
MS RN AMA NOTES PT PREFERS TO LEAVE AMA, AND DOESN'T WANT TO WAIT FOR MD TO COME. PT WANTS TO PAY BILLS AND HAVE THE DOG WITH HIM. PT SIGNED AMA. NOTIFIED DR. BROWN. MADE AWARE OF CHARGE NURSE/MANUELA WELL. PT GIVEN A COPY OF EXITCARE FOR DISCHARGE. INCLUDING DR. BROWN'S OFFICE INFO FOR FOLLOW UP. PT A/O X4, ACCOMPANIED BY FRIEND CHITRA. PT ESCORTED TO THE LOBBY BY MASSAGE COORDINATOR VIA WHEELCHAIR. PT SIGNED INVENTORY LIST, ALL BELONGINGS WITH THE PT. VITALS STABLE AND RECORDED. SKIN ISSUE TO LEFT FOOT CALLUS, PER PT REFUSED TO TAKE PHOTO BECAUSE HE SAID E'S IN A HURRY. RN EXPLAIN UNIT PROTOCOL AND INSISTED TO REFUSE. PIV TO ANNIE REMOVED AND APPLIED DRESSING. PT AWARE ABOUT FOLLOW UP APPOINTMENTS. PT LEFT THE UNIT AT 1330.
== END 2019-12-13 13:30 | disposition left against medical advice (07) | DRG 871 ==
LOC: ER 12:32 → TELE 14:38 → ICU 16:27 → MED 12-11 10:39 → TELE 12-11 21:21 → MED 12-12 10:18
PROVIDERS: ADMIT Internal Medicine; ATTEND Internal Medicine
DX: A41.9 Sepsis, unspecified organism (principal); I21.9 Acute myocardial infarction, unspecified; E87.1 Hypo-osmolality and hyponatremia; N17.9 Acute kidney failure, unspecified; J44.1 Chronic obstructive pulmonary disease with (acute) exacerbation; J44.0 Chronic obstructive pulmonary disease with (acute) lower respiratory infection; E11.65 Type 2 diabetes mellitus with hyperglycemia; D69.6 Thrombocytopenia, unspecified; G40.909 Epilepsy, unspecified, not intractable, without status epilepticus; I25.10 Atherosclerotic heart disease of native coronary artery without angina pectoris; Z95.5 Presence of coronary angioplasty implant and graft; Z91.19 Patient's noncompliance with other medical treatment and regimen; Z91.14 Patient's other noncompliance with medication regimen; Z86.73 Personal history of transient ischemic attack (TIA), and cerebral infarction without residual deficits; Z82.49 Family history of ischemic heart disease and other diseases of the circulatory system; I50.9 Heart failure, unspecified; E86.0 Dehydration; I11.0 Hypertensive heart disease with heart failure; G89.4 Chronic pain syndrome; E11.42 Type 2 diabetes mellitus with diabetic polyneuropathy; F41.0 Panic disorder [episodic paroxysmal anxiety]; E88.09 Other disorders of plasma-protein metabolism, not elsewhere classified; Z79.84 Long term (current) use of oral hypoglycemic drugs; Z79.899 Other long term (current) drug therapy; J20.9 Acute bronchitis, unspecified; Z72.0 Tobacco use; E66.9 Obesity, unspecified; K74.60 Unspecified cirrhosis of liver; Z68.31 Body mass index [BMI] 31.0-31.9, adult
CPT/HCPCS: 36415; 71045-TC; 76700-TC; 80048-TC; 80053-TC; 80061-TC; 80076-TC; 80185-TC; 81000-TC; 82010-TC; 82105; 82947-TC; 82962-TC; 83605-TC; 83735-TC; 84100-TC; 84132-TC; 84443-TC; 84484-TC; 85025-TC; 86803; 87040-TC; 87081-TC; 93307-TC; 93970-TC; 94799-TC; 97116-TC; 97530-TC; G0378; J0456; J0696; J1650; J1815; J1885; J2270; J3490; J7030; J7060

== ENCOUNTER 2020-02-27 20:43 | Inpatient (IN) | payer MEDICARE, OTHER ==
[~2020-02-27] VITALS: Ht 185.4 cm; Wt 98.0 kg
[~2020-02-27 20:43] MED LIST changes: +ATOR10TA PO; -CARI350T PO; -CLON2TAB PO; +CLON2TAB11 PO; -ESCI5TAB PO; +FLUT16SP16; +GUAI100S11 PO; +METF-442 PO; -MORP15TA PO; +PHEN100C12 PO; +[UNRECOGNIZED DRUG - REMARK] SQ
[2020-02-27] MEDS ORDERED: MAG HYDROX/AL HYDROX/SIMETH 30 ML UDC ONE (21:20)
[2020-02-27] MEDS ORDERED: ASPIRIN 81 MG TAB.CHEW ONE (21:21)
[2020-02-27] MEDS ORDERED: FAMOTIDINE/PF INJ 20 MG/2 ML VIAL IV ONE ×2 (21:21→21:30)
[2020-02-27 21:28] LABS: BASOPHILS # (AUTO) 0.4 /CMM (0.0-0.2); EOSINOPHILS % (AUTO) 2.1 % (0.0-6.0); HEMATOCRIT 39 % (39-51); HEMOGLOBIN 13.9 g/dL (13.5-17.5); LYMPHOCYTES # (AUTO) 0.7 /CMM (0.8-4.8); LYMPHOCYTES % (AUTO) 25.6 % (20.0-44.0); MEAN CORPUSCULAR HGB CONC 35 g/dl (31.0-36.0); MEAN CORPUSCULAR VOLUME 93 fL (80-96); MONOCYTES # (AUTO) 0.3 /CMM (0.1-1.30); MONOCYTES % (AUTO) 10.3 % (2.0-12.0); NEUTROPHILS # (AUTO) 1.4 /CMM (1.8-8.9); NEUTROPHILS % (AUTO) 48.1 % (43.0-81.0); PLATELET COUNT (AUTO) 67 /CMM (150-450); RED BLOOD CELL COUNT(AUTO) 4.22 MIL/uL (4.5-6.0); WHITE BLOOD COUNT (AUTO) 2.8 K/uL (4.3-11.0)
--- NOTE | 2020-02-27 21:28 | NUR ---
PT BIB RA WITH A C/O CP, N/V, BACK PAIN, AND BLE PAIN. PT WENT TO ER 12 AND WAS PLACED ON THE MONITOR AND CONTINUOUS PULSE OX. PT REC'D 162 ASPIRIN IN THE FIELD AND NITRO. PT HAS AN 18G IV IN LAC.
--- NOTE | 2020-02-27 21:28 | NUR ---
CXR IN PROGRESS AT THE BEDSIDE.
[2020-02-27] MEDS ORDERED: MAG HYDROX/AL HYDROX/SIMETH 30 ML UDC PO ONE (21:30)
[2020-02-27] MEDS ORDERED: ASPIRIN 81 MG TAB.CHEW PO ONE (21:30)
[2020-02-27 21:51] LABS: BASOPHILS % (AUTO) 13.9 % (0.0-2.0)
[2020-02-27 22:32] LABS: LYMPHOCYTES % (MANUAL) 24 % (16-48); MONOCYTES % (MANUAL) 8 % (0-11.0); NEUTROPHILS % (MANUAL) 68 (42-76)
[2020-02-27 22:43] LABS: ALANINE AMINOTRANSFERASE 122 U/L (12-78); ALBUMIN 2.9 g/dL (3.4-5.0); ALKALINE PHOSPHATASE 92 U/L (46-116); ASPARTATE AMINOTRANSFERASE 97 U/L (15-37); BILIRUBIN,DIRECT 0.2 mg/dL (0.0-0.2); BILIRUBIN,TOTAL 0.5 mg/dL (0.2-1.0); CALCIUM, SERUM 8.1 mg/dL (8.5-10.1); CARBON DIOXIDE 20 mmol/L (21-32); CHLORIDE 94 mmol/L (98-107); CREATININE 0.9 mg/dL (0.6-1.3); MAGNESIUM 1.7 mg/dL (1.8-2.4); POTASSIUM 3.7 mmol/L (3.5-5.1); SODIUM SERUM 129 mmol/L (136-145); TOTAL PROTEIN, SERUM 6.7 g/dL (6.4-8.2); UREA NITROGEN, BLOOD 12 mg/dL (7-18)
[2020-02-27 22:48] LABS: GLUCOSE 549 mg/dL (74-106)
[2020-02-27 23:03] LABS: B-TYPE NATRIURETIC PEPTIDE 33 PG/ML (0-125)
[2020-02-27] MEDS ORDERED: IV NS 0.9% 1,000 ML IV ONE (23:30)
[2020-02-27] MEDS ORDERED: INSULIN REGULAR, HUMAN 100 UNIT/ML 10 ML VIAL SQ ONE (23:30)
[2020-02-27] MEDS ORDERED: INSULIN REGULAR, HUMAN 100 UNIT/ML 10 ML VIAL ONE (23:30)
--- NOTE | 2020-02-27 23:36 | NUR ---
PT REC'D MEDICATION ORDERED. BLOOD SUGAR WAS RECHECKED AND IS 445. IS AWARE.
[2020-02-28] VITALS (8 sets, daily range): BP systolic 95–125; BP diastolic 62–74
--- NOTE | 2020-02-28 00:04 | NUR ---
REPORT GIVEN TO SUPRIYA OCHOA FOR SHANNON.
--- NOTE | 2020-02-28 00:45 | NUR ---
FSBS: 375 MD MADE AWARE W/ NO NEW ORDER PT LAYING IN BED AWAKE AND ALERT. W/ NO DISTRESS. WILL CONT TO MONITOR ,
[2020-02-28 00:50] LABS: MAGNESIUM 1.8 mg/dL (1.8-2.4); PHOSPHORUS 2.9 mg/dL (2.5-4.9)
--- NOTE | 2020-02-28 01:44 | NUR ---
DR BROWN: [phone]
[2020-02-28 01:47] LABS: POTASSIUM 3.9 mmol/L (3.5-5.1)
[2020-02-28 01:48] LABS: CALCIUM, SERUM 8.1 mg/dL (8.5-10.1); CREATININE 0.8 mg/dL (0.6-1.3)
--- NOTE | 2020-02-28 01:58 | NUR ---
PT WAS TRANSFERRED TO 325 UNDER ACLS.
--- NOTE | 2020-02-28 02:00 | NUR ---
RN NOTES ADMITTED PATIENT FROM ER, TRANSPORTED VIA GURNEY, NO SIGNS OF ACUTE RESPIRATORY OR CARDIAC DISTRESS NOTED. INITIAL ASSESSMENT AND ADMISSION PROCESS INITIATED. WILL CALL LEIGHA ADAN FOR ADMITTING ORDERS. PATIENT DENIES NAUSEA/ VOMITING AND PAIN AT THIS TIME. NOTED UPON ASSESSMENT THAT PATIENT HAS $ $1,169.00 INSIDE HIS WALLET, OFFERED AND SUGGESTED THAT WE CAN KEEP THE MONEY IN SAFE, HOWEVER PATIENT REFUSED. CHARGE NURSE MADE AWARE. ALL NEEDS ANTICIPATED, KEEP CLEAN WARM DRY AND COMFORTABLE, REPOSITIONED. SAFETY MEASURES IN PLACE, WILL MONITOR ACCORDINGLY.
[2020-02-28] MEDS ORDERED: ONDANSETRON HCL/PF 4 MG/2 ML VIAL IV PRN (03:00)
[2020-02-28] MEDS ORDERED: GUAIFENESIN 300 MG/15 ML UDC PO PRN (03:00)
[2020-02-28] MEDS ORDERED: ACETAMINOPHEN 325 MG TABLET PO PRN (03:00)
[2020-02-28] MEDS ORDERED: INSULIN GLARGINE, 100 UNIT/ML CARTRIDGE SQ SCH ×3 (03:00→22:00)
--- NOTE | 2020-02-28 03:45 | NUR ---
RN NOTES CALLED AND SPOKE WITH DR BROWN ( [phone] ) WITH ORDERS NOTED AND CARRIED OUT.
[2020-02-28] MEDS ORDERED: IV NS 0.9% 1,000 ML IV PRN (04:30)
[2020-02-28 06:41] LABS: BASOPHILS % (AUTO) 0.9 % (0.0-2.0); EOSINOPHILS % (AUTO) 1.9 % (0.0-6.0); HEMATOCRIT 39 % (39-51); HEMOGLOBIN 13.5 g/dL (13.5-17.5); LYMPHOCYTES # (AUTO) 0.7 /CMM (0.8-4.8); LYMPHOCYTES % (AUTO) 34.8 % (20.0-44.0); MEAN CORPUSCULAR HGB CONC 34 g/dl (31.0-36.0); MEAN CORPUSCULAR VOLUME 93 fL (80-96); MONOCYTES # (AUTO) 0.2 /CMM (0.1-1.30); MONOCYTES % (AUTO) 10.6 % (2.0-12.0); NEUTROPHILS # (AUTO) 1.1 /CMM (1.8-8.9); NEUTROPHILS % (AUTO) 51.8 % (43.0-81.0); PLATELET COUNT (AUTO) 76 /CMM (150-450)
--- NOTE | 2020-02-28 06:58 | NUR ---
RN NOTES INFORMED DR. BROWN REGARDING PATIENT'S BLOOD GLUCOSE 477 MG/DL. WITH ORDER TO INCREASE HUMALOG DOSE FROM 8 UNITS TO 12 UNITS IN THE MORNING BEFORE BREAKFAST. ORDERS NOTED AND CARRIED OUT.
[2020-02-28] MEDS: BLOOD SUGAR DIAGNOSTIC 1 EACH STRIP IN SCH ×3 (07:05→16:47)
[2020-02-28] MEDS: INSULIN ASPART/LISPRO 100 UNIT/ML CARTRIDGE SQ SCH ×3 (07:07→16:52)
[2020-02-28 07:09] LABS: THYROID STIMULATING HORMONE 2.514 uIU/mL (0.358-3.74)
--- NOTE | 2020-02-28 07:28 | NUR ---
RN NOTES ALL NEEDS ATTENDED AND MET, RESTING COMFORTABLY, NO SIGNS OF DISTRESS, SAFETY MEASURES IN PLACE, CALL LIGHT WITH IN EASY REACH. ENDORSED TO AM NURSE SUPRIYA ROLDAN FOR CONTINUOUS CARE AND MANAGEMENT.
[2020-02-28] MEDS ORDERED: INSULIN ASPART/LISPRO 100 UNIT/ML CARTRIDGE SQ SCH (07:30)
--- NOTE | 2020-02-28 07:30 | NUR ---
MS/RN Opening note Patient received form garage door technician. A/O X4, vital signs stable, complaining of pain to left knee, will administered medication. No shortness of breath or chest pain. Tele reading NSR. saftey measures in place, call light within reach, will continue to monitor and ensure safety.
[2020-02-28 07:59] LABS: ALBUMIN 2.6 g/dL (3.4-5.0); BILIRUBIN,TOTAL 0.5 mg/dL (0.2-1.0); CALCIUM, SERUM 7.8 mg/dL (8.5-10.1); CREATININE 0.9 mg/dL (0.6-1.3); POTASSIUM 4.4 mmol/L (3.5-5.1); TOTAL PROTEIN, SERUM 6.4 g/dL (6.4-8.2)
[2020-02-28] MEDS ORDERED: METFORMIN 500 MG TABLET PO SCH ×2 (08:00→09:00)
[2020-02-28] MEDS: PANTOPRAZOLE 40 MG TABLET.DR PO SCH (08:05)
[2020-02-28] MEDS: ASPIRIN 81 MG TAB.CHEW PO SCH (08:05)
[2020-02-28] MEDS: clonazePAM 1 MG TABLET PO SCH ×2 (08:05→16:47)
[2020-02-28] MEDS: PHENYTOIN EXTENDED RELEASE 100 MG CAPSULE PO SCH ×3 (08:05→16:47)
[2020-02-28] MEDS: HYDROCODONE/APAP 5/325MG 1 EACH TABLET PO PRN ×2 (08:06→16:55)
[2020-02-28] MEDS: ENOXAPARIN SODIUM 40 MG/0.4 ML DISP.SYRIN SQ SCH (08:11)
--- NOTE | 2020-02-28 08:25 | NUR ---
MS/RN Medications Morning medications administered as ordered, norco given for generalized pain 07/13.
[2020-02-28] MEDS ORDERED: SUMA100T16 PO (09:37)
[2020-02-28] MEDS ORDERED: DICL75TA5 PO (09:37)
[2020-02-28] MEDS ORDERED: TRAM50TA2 PO (09:37)
[2020-02-28] MEDS: GEMFIBROZIL 600 MG TABLET PO SCH ×2 (11:12→20:55)
[2020-02-28] MEDS: METOCLOPRAMIDE HCL 10 MG TABLET PO SCH ×2 (11:12→16:47)
--- NOTE | 2020-02-28 11:30 | NUR ---
MS/RN S/B Dr Osorio Seen by Dr Osorio - x-ray or right knee ordered to evaluate increased pain level, medication reconciliation completed, home medications continued, labs ordered for tomorrow.
--- NOTE | 2020-02-28 12:24 | NUR ---
MS/RN Blood sugar Blood sugar at noon 313, insulin administered as ordered. Patient does not have sliding scale ordered, has 12 units ordered every lunch time.
--- NOTE | 2020-02-28 14:39 | NUR ---
MS/RN Knee x-ray Knee x-ray taken at bedside, showing moderate degenerative joint disease.
--- NOTE | 2020-02-28 17:00 | NUR ---
MS/RN Pain continues to complain of pain to right knee, norco one tablet administered.
--- NOTE | 2020-02-28 17:28 | NUR ---
MS/RN Blood sugar Blood sugar at 5p - 309, insulin given as ordered.
--- NOTE | 2020-02-28 18:02 | NUR ---
MS/RN End note Patient remains in stable condition, no new changes to plan of care. All medications administered as ordered. All questions answered. Will endorse to restaurant shift leader.
--- NOTE | 2020-02-28 19:50 | NUR ---
RN OPENING NOTES RECEIVED REPORT FROM DAYSHIFT RNJAMAR. FOUND Pt AWAKE, RESTING IN BED, WATCHING TV. NO S/S OF ACUTE DISTRESS OR SOB NOTED. NO C/O OF DISCOMFORT OR SEVERE PAIN AT THIS TIME. Pt IS A/OX3, VERBAL, ABLE TO MAKE NEEDS KNOWN. ON TELE MONITOR, WITH READING SR 80s. IV ACCESS ON LAC #18G, IS REFUSING IV FLUIDS; PER REPORT DR BROWN WAS MADE AWARE. SAFETY MEASURES IN PLACE. BED LOW, LOCKED, HOB ELEVATED, SIDE RAILS UP, CALL LIGHT AND BEDSIDE TABLE WITHIN REACH. WILL CONTINUE TO MONITOR Pt's CONDITION AND SAFETY THROUGHOUT THE NIGHT.
[2020-02-28] MEDS: INSULIN GLARGINE, 100 UNIT/ML CARTRIDGE SQ SCH (21:02)
[2020-02-28] MEDS: ATORVASTATIN 10 MG TABLET PO SCH (21:06)
--- NOTE | 2020-02-28 22:00 | NUR ---
RN NOTES HS BG 375. ADMINISTERED SCHEDULED LANTUS OF 20UN. SANDWICH & SNACK PROVIDED AT BEDSIDE.
[2020-02-28] MEDS: MORPHINE SULFATE INJ 2 MG/ML DISP.SYRIN IV PRN (22:15)
[2020-02-28] MEDS: LORAZEPAM 1 MG TABLET PO PRN (23:16)
--- NOTE | 2020-02-29 01:14 | NUR ---
RN NOTES Pt WAS SITTING OUTSIDE OF ROOM IN THE CHAIR, OUT IN THE HALLWAY, STATING THAT HE IS GOING CRAZY INSIDE OF HIS ROOM, AND WANTS TO GO OUTSIDE OF THE HOSPITAL FOR A BREATH OF FRESH AIR. EXPLAINED TO THE Pt THAT HE IS NOT ALLOWED OUTSIDE OF THE HOSPITAL BUILDING AT THIS TIME SINCE IT IS PAST MIDNIGHT. Pt SAID HE DOES NOT CARE, AND NEEDS TO GO OUTSIDE BECAUSE HE CANNOT TAKE IT ANY LONGER BEING COOPED UP INSIDE OF HIS ROOM. TOLD Pt A COMPROMISE WE CAN TAKE HIM DOWN TO THE OUTDOOR PATIO AREA ON THE 1ST FLOOR THAT IS OUTDOORS, BUT STILL ON HOSPITAL GROUNDS. Pt AGREED TO THOSE TERMS. CALLED SECURITY FOR STAND BY ESCORT FOR THE CHEMICAL PROCESSING LABORER & Pt, IN CASE Pt IS A FLIGHT RISK. Pt WAS TAKEN DOWN TO THE 1ST FLOOR OUTDOOR PATIO AREA WITH WHEELCHAIR, ACCOMPANIED BY ELVA BASHIR & SERVICES CLERK YUKI.
[2020-02-29] MEDS: HYDROCODONE/APAP 5/325MG 1 EACH TABLET PO PRN (02:45)
[2020-02-29] MEDS: BLOOD SUGAR DIAGNOSTIC 1 EACH STRIP IN SCH ×3 (06:10→16:53)
[2020-02-29] MEDS: INSULIN ASPART/LISPRO 100 UNIT/ML CARTRIDGE SQ SCH ×3 (06:18→17:03)
--- NOTE | 2020-02-29 06:22 | NUR ---
RN NOTES AC BG 358. ADMINISTERED SCHEDULED 12UN NOVOLOG/HUMOLOG VIA RT DELTOID. SNACKS PROVIDED.
[2020-02-29] MEDS: METOCLOPRAMIDE HCL 10 MG TABLET PO SCH ×3 (06:25→16:52)
[2020-02-29] MEDS: PANTOPRAZOLE 40 MG TABLET.DR PO SCH (06:25)
[2020-02-29 06:36] LABS: EOSINOPHILS % (AUTO) 1.7 % (0.0-6.0); HEMATOCRIT 38 % (39-51); HEMOGLOBIN 12.9 g/dL (13.5-17.5); LYMPHOCYTES # (AUTO) 0.7 /CMM (0.8-4.8); LYMPHOCYTES % (AUTO) 36.2 % (20.0-44.0); MEAN CORPUSCULAR HGB CONC 34 g/dl (31.0-36.0); MEAN CORPUSCULAR VOLUME 93 fL (80-96); MONOCYTES # (AUTO) 0.2 /CMM (0.1-1.30); MONOCYTES % (AUTO) 11.1 % (2.0-12.0); NEUTROPHILS # (AUTO) 0.9 /CMM (1.8-8.9); PLATELET COUNT (AUTO) 65 /CMM (150-450); RED BLOOD CELL COUNT(AUTO) 4.03 MIL/uL (4.5-6.0)
[2020-02-29 06:39] LABS: PHENYTOIN (DILANTIN) 1.4 ug/ml (10.0-20.0)
[2020-02-29 06:52] LABS: ALBUMIN 2.6 g/dL (3.4-5.0); BILIRUBIN,TOTAL 0.6 mg/dL (0.2-1.0); CALCIUM, SERUM 8.1 mg/dL (8.5-10.1); CREATININE 0.7 mg/dL (0.6-1.3); POTASSIUM 3.9 mmol/L (3.5-5.1); TOTAL PROTEIN, SERUM 6.2 g/dL (6.4-8.2)
--- NOTE | 2020-02-29 07:15 | NUR ---
RN CLOSING NOTES NO SIGNIFICANT CHANGES IN Pt's CONDITION. Pt REMAINED STABLE PER BASELINE. NO S/S OF ACUTE DISTRESS OR SOB NOTED DURING THE NIGHT. ALL NEEDS MET AND ATTENDED. SAFETY MEASURES IN PLACE. Pt IS RESTING COMFORTABLY IN BED. TELE READING SR 80s. WILL ENDORSE TO DAYSHIFT RN FOR Pt's SHANNON.
--- NOTE | 2020-02-29 07:28 | NUR ---
MS/RN Opening note Patient received from director business development. Sleeping soundly at this time, does not appear in any pain or discomfort. Tele monitor reading NSR, heart rate in the 70's. Safety measures in place, side rails X2 in upright position, bed in low setting, brakes locked. Call light within reach, will continue to monitor and ensure safety.
[2020-02-29 07:49] LABS: WHITE BLOOD COUNT (AUTO) 1.8 K/uL (4.3-11.0)
[2020-02-29 08:00] VITALS: BP 110/64
[2020-02-29] MEDS: clonazePAM 1 MG TABLET PO SCH ×2 (08:09→16:52)
[2020-02-29] MEDS: PHENYTOIN EXTENDED RELEASE 100 MG CAPSULE PO SCH ×3 (08:09→16:52)
[2020-02-29] MEDS: ASPIRIN 81 MG TAB.CHEW PO SCH (08:09)
[2020-02-29] MEDS: GEMFIBROZIL 600 MG TABLET PO SCH ×2 (08:09→21:30)
[2020-02-29] MEDS: INSULIN GLARGINE, 100 UNIT/ML CARTRIDGE SQ SCH (08:12)
[2020-02-29] MEDS: ENOXAPARIN SODIUM 40 MG/0.4 ML DISP.SYRIN SQ SCH (08:16)
[2020-02-29 08:26] LABS: EOSINOPHILS % (MANUAL) 3 % (0-4); LYMPHOCYTES % (MANUAL) 40 % (16-48); MONOCYTES % (MANUAL) 6 % (0-11.0); NEUTROPHILS % (MANUAL) 51 (42-76)
[2020-02-29] MEDS: MORPHINE SULFATE INJ 2 MG/ML DISP.SYRIN IV PRN ×3 (10:48→21:32)
--- NOTE | 2020-02-29 11:45 | NUR ---
MS/RN S/B Dr Osorio Seen by Dr Osorio - abdominal ultrasound ordered for today to further evaluate pain. Labs and diabetic teaching to be given.
--- NOTE | 2020-02-29 12:00 | NUR ---
MS/RN Diabetic teaching Blood sugar at noon 334, insulin coverage as per lantus order. Patient given instructions on how to draw up insulin and inject. Stated understanding and will administer insulin with supervision at 5p.
--- NOTE | 2020-02-29 12:30 | NUR ---
MS/RN Abdominal US Abdominal ultrasound at bedside to further evaluate abdominal pain, no results as of this time.
--- NOTE | 2020-02-29 13:05 | NUR ---
MS/RN Urinalysis Clean catch urine collected and sent to lab for urinalysis.
--- NOTE | 2020-02-29 13:11 | NUR ---
MS/RN MRSA Received call from [facility], patient is MRSA nares.
[2020-02-29 13:31] LABS: APPEARANCE,URINE SL CLOUDY (CLEAR); BILIRUBIN,URINE NEGATIVE (NEGATIVE); BLOOD, URINE NEGATIVE Ery/uL (NEGATIVE); KETONES,URINE NEGATIVE (NEGATIVE); LEUKOCYTE ESTERASE ,URINE NEGATIVE (NEGATIVE); NITRITE, URINE NEGATIVE (NEGATIVE); PROTEIN,URINE NEGATIVE (NEGATIVE); UGLUCOSE >=1000 mg/dL (NEGATIVE); UROBILINOGEN,URINE 0.2 EU/dL (0.2)
[2020-02-29 13:37] LABS: COLOR,URINE DARK YELLOW (YELLOW)
[2020-02-29 13:45] LABS: BACTERIA,URINE Rare /HPF (None Seen); RBC,URINE 0-2 /HPF (0-2); SQUAMOUS EPITHELIAL CELL,UR Rare /HPF (None Seen); WBC,URINE 0-2 /HPF (0-3)
[2020-02-29 16:00] VITALS: BP 102/75
--- NOTE | 2020-02-29 17:10 | NUR ---
MS/RN Blood sugar Blood sugar at 5p 367, insulin coverage as ordered. Patient again re-educated about his diet and food choices. Diabetic teaching given, patient observed drawing up and administering his own insulin. No further complaints of pain or nausea. Will endorse to shift foreman.
--- NOTE | 2020-02-29 19:55 | NUR ---
RN OPENING NOTES RECEIVED REPORT FROM JAELYN RNJAMAR. FOUND Pt AWAKE, RESTING IN BED, WATCHING TV. NO S/S OF ACUTE DISTRESS OR SOB NOTED. NO C/O OF DISCOMFORT OR SEVERE PAIN AT THIS TIME. Pt IS A/OX3, VERBAL, ABLE TO MAKE NEEDS KNOWN. ON TELE MONITOR, USUAL BASELINE READING SR 80s, BUT Pt WAS REFUSING TO WEAR TELE BOX DURING THE DAY; PER REPORT MD IS AWARE. IV ACCESS ON LAC #18G, IS REFUSING IV FLUIDS. PER REPORT Pt WILL BE DISCHARGED TOMORROW. SAFETY MEASURES IN PLACE. BED LOW, LOCKED, HOB ELEVATED, SIDE RAILS UP, CALL LIGHT AND BEDSIDE TABLE WITHIN REACH. WILL CONTINUE TO MONITOR Pt's CONDITION AND SAFETY THROUGHOUT THE NIGHT.
--- NOTE | 2020-02-29 20:08 | NUR ---
RN NOTES Pt IS REQUESTING TO GO DOWN TO THE OUTDOOR PATIO AREA TO GET SOME FRESH AIR. ELVA KNOWLES TOOK Pt DOWN WITH WHEELCHAIR.
[2020-02-29 20:46] VITALS: BP 105/65
[2020-02-29 21:00] VITALS: BP 105/65
[2020-02-29] MEDS ORDERED: INSULIN GLARGINE, 100 UNIT/ML CARTRIDGE SQ SCH (21:00)
[2020-02-29] MEDS: ATORVASTATIN 10 MG TABLET PO SCH (21:30)
--- NOTE | 2020-02-29 21:54 | NUR ---
RN NOTES HS BG 396. ADMINISTERED SCHEDULED 25UN OF LANTUS. Pt ASKING FOR SNACKS.
[2020-02-29] MEDS: LORAZEPAM 1 MG TABLET PO PRN (22:52)
[2020-03-01] VITALS: BP 115/60
[2020-03-01 00:36] VITALS: BP 115/60
[2020-03-01] MEDS: MORPHINE SULFATE INJ 2 MG/ML DISP.SYRIN IV PRN (01:52)
[2020-03-01 04:00] VITALS: BP 125/74
[2020-03-01] MEDS: METOCLOPRAMIDE HCL 10 MG TABLET PO SCH (06:19)
[2020-03-01] MEDS: BLOOD SUGAR DIAGNOSTIC 1 EACH STRIP IN SCH (06:19)
[2020-03-01] MEDS: PANTOPRAZOLE 40 MG TABLET.DR PO SCH (06:19)
[2020-03-01] MEDS: INSULIN ASPART/LISPRO 100 UNIT/ML CARTRIDGE SQ SCH (06:20)
[2020-03-01 06:38] LABS: BASOPHILS % (AUTO) 0.7 % (0.0-2.0); EOSINOPHILS % (AUTO) 1.5 % (0.0-6.0); HEMATOCRIT 40 % (39-51); HEMOGLOBIN 13.4 g/dL (13.5-17.5); LYMPHOCYTES # (AUTO) 0.6 /CMM (0.8-4.8); LYMPHOCYTES % (AUTO) 35.8 % (20.0-44.0); MEAN CORPUSCULAR HGB CONC 34 g/dl (31.0-36.0); MEAN CORPUSCULAR VOLUME 94 fL (80-96); MONOCYTES # (AUTO) 0.2 /CMM (0.1-1.30); NEUTROPHILS # (AUTO) 0.8 /CMM (1.8-8.9); PLATELET COUNT (AUTO) 56 /CMM (150-450); RED BLOOD CELL COUNT(AUTO) 4.22 MIL/uL (4.5-6.0)
[2020-03-01] MEDS: HYDROCODONE/APAP 5/325MG 1 EACH TABLET PO PRN (06:45)
[2020-03-01 06:49] LABS: WHITE BLOOD COUNT (AUTO) 1.7 K/uL (4.3-11.0)
--- NOTE | 2020-03-01 06:55 | NUR ---
RN CLOSING NOTES NO SIGNIFICANT CHANGES IN Pt's CONDITION. Pt REMAINED STABLE PER BASELINE. NO S/S OF ACUTE DISTRESS OR SOB NOTED DURING THE NIGHT. ALL NEEDS MET AND ATTENDED. SAFETY MEASURES IN PLACE. Pt IS AWAKE, SITTING UP IN BED. Pt TOOK OFF TELE BOX, WILL KEEP ON STANDBY. Pt MAY BE DISCHARGED HOME TODAY. WILL ENDORSE TO DAYSHIFT RN FOR Pt's SHANNON.
[2020-03-01 07:01] LABS: ALBUMIN 2.8 g/dL (3.4-5.0); BILIRUBIN,TOTAL 0.6 mg/dL (0.2-1.0); CALCIUM, SERUM 8.2 mg/dL (8.5-10.1); CREATININE 0.7 mg/dL (0.6-1.3); POTASSIUM 4.2 mmol/L (3.5-5.1); TOTAL PROTEIN, SERUM 6.5 g/dL (6.4-8.2)
--- NOTE | 2020-03-01 07:30 | NUR ---
tele ceramics test engineer: notes pt by the door and wanting to leave the hospital now and wants his iv out immediately. explained the risk and consequences involving leaving the hospital at this time. pt verbalized understanding. pt wants to leave the hospital without being seen by a physician as stated. cn made aware. h/l removed with tip intact.
--- NOTE | 2020-03-01 07:40 | NUR ---
tele biomedical engineering technician: notes discharge instructions given to pt with against medical advice form signed. pt verbalized understanding.
--- NOTE | 2020-03-01 07:55 | NUR ---
tele senior maintenance mechanic: discharge discharge home against medical advice via ambulatory with all valuables and d'c paper.
--- NOTE | 2020-03-01 08:05 | NUR ---
tele farm loan representative: notes dr. calix notified and made aware of pt leaving against medical advice, spoke to him over the phone.
[2020-03-01 09:49] LABS: BAND % (MANUAL) 1 % (0.0-5.0); LYMPHOCYTES % (MANUAL) 39 % (16-48); MONOCYTES % (MANUAL) 13 % (0-11.0); NEUTROPHILS % (MANUAL) 47 (42-76)
== END 2020-03-01 08:00 | disposition left against medical advice (07) | DRG 74 ==
LOC: ER 20:47 → TELE 02-28 01:02
PROVIDERS: ADMIT Internal Medicine; ATTEND Internal Medicine
DX: E11.43 Type 2 diabetes mellitus with diabetic autonomic (poly)neuropathy (principal); E87.1 Hypo-osmolality and hyponatremia; I69.354 Hemiplegia and hemiparesis following cerebral infarction affecting left non-dominant side; J45.909 Unspecified asthma, uncomplicated; Z79.84 Long term (current) use of oral hypoglycemic drugs; K31.84 Gastroparesis; K74.60 Unspecified cirrhosis of liver; E11.65 Type 2 diabetes mellitus with hyperglycemia; D69.59 Other secondary thrombocytopenia; E66.9 Obesity, unspecified; F17.210 Nicotine dependence, cigarettes, uncomplicated; E78.1 Pure hyperglyceridemia; G40.909 Epilepsy, unspecified, not intractable, without status epilepticus; I25.10 Atherosclerotic heart disease of native coronary artery without angina pectoris; Z79.4 Long term (current) use of insulin; Z71.6 Tobacco abuse counseling; Z86.19 Personal history of other infectious and parasitic diseases; F41.9 Anxiety disorder, unspecified; I50.9 Heart failure, unspecified; I11.0 Hypertensive heart disease with heart failure; D72.819 Decreased white blood cell count, unspecified; M17.11 Unilateral primary osteoarthritis, right knee; Z95.5 Presence of coronary angioplasty implant and graft; Z91.19 Patient's noncompliance with other medical treatment and regimen; Z68.28 Body mass index [BMI] 28.0-28.9, adult
CPT/HCPCS: 36415; 71045-TC; 73564-TC; 76705-TC; 80048-TC; 80053-TC; 80061-TC; 80076-TC; 80185-TC; 81000-TC; 82962-TC; 83690-TC; 83735-TC; 83880; 84100-TC; 84443-TC; 84484-TC; 85025-TC; 87081-TC; G0378; J1650; J1815; J2270; J3490; J7030; J8597

== ENCOUNTER 2021-02-26 19:01 | Inpatient (IN) | payer MEDICARE, OTHER ==
[~2021-02-26] VITALS: Ht 185.4 cm; Wt 94.3 kg
[~2021-02-26 19:01] MED LIST changes: +DICL75TA5 PO; +SUMA100T16 PO; +TRAM50TA2 PO; -[UNRECOGNIZED DRUG - REMARK] SQ
[2021-02-26] MEDS ORDERED: ONDANSETRON HCL/PF 4 MG/2 ML VIAL IVP ONE (19:30)
[2021-02-26] MEDS ORDERED: MORPHINE SULFATE INJ 2 MG/ML DISP.SYRIN IV ONE (19:30)
[2021-02-26] MEDS ORDERED: ONDANSETRON HCL/PF 4 MG/2 ML VIAL ONE (19:35)
[2021-02-26] MEDS ORDERED: MORPHINE SULFATE INJ 4 MG/ML DISP.SYRIN ONE (19:36)
[2021-02-26 19:45] LABS: LYMPHOCYTES # (AUTO) 1.3 /CMM (0.8-4.8); PLATELET COUNT (AUTO) 82 /CMM (150-450)
[2021-02-26 19:49] LABS: BASOPHILS % (AUTO) 0.6 % (0.0-2.0); EOSINOPHILS % (AUTO) 0.6 % (0.0-6.0); HEMATOCRIT 48 % (39-51); LYMPHOCYTES % (AUTO) 19.2 % (20.0-44.0); MEAN CORPUSCULAR HGB CONC 34 g/dl (31.0-36.0); MEAN CORPUSCULAR VOLUME 91 fL (80-96); MONOCYTES # (AUTO) 0.8 /CMM (0.1-1.30); MONOCYTES % (AUTO) 11.6 % (2.0-12.0); NEUTROPHILS # (AUTO) 4.7 /CMM (1.8-8.9); RED BLOOD CELL COUNT(AUTO) 5.25 MIL/uL (4.5-6.0); WHITE BLOOD COUNT (AUTO) 6.9 K/uL (4.3-11.0)
[2021-02-26 20:11] LABS: ALANINE AMINOTRANSFERASE 43 U/L (12-78); ALBUMIN 2.9 g/dL (3.4-5.0); ALKALINE PHOSPHATASE 112 U/L (46-116); ASPARTATE AMINOTRANSFERASE 23 U/L (15-37); BILIRUBIN,DIRECT 0.4 mg/dL (0.0-0.2); BILIRUBIN,TOTAL 0.9 mg/dL (0.2-1.0); CALCIUM, SERUM 8.2 mg/dL (8.5-10.1); CARBON DIOXIDE 26 mmol/L (21-32); CHLORIDE 95 mmol/L (98-107); CREATININE 1.3 mg/dL (0.6-1.3); POTASSIUM 4.6 mmol/L (3.5-5.1); SODIUM SERUM 128 mmol/L (136-145); TOTAL PROTEIN, SERUM 7.1 g/dL (6.4-8.2); UREA NITROGEN, BLOOD 31 mg/dL (7-18)
[2021-02-26 20:15] LABS: GLUCOSE 714 mg/dL (74-106)
[2021-02-26 20:28] LABS: BASOPHILS % (MANUAL) 1 % (0.0-2.0); EOSINOPHILS % (MANUAL) 1 % (0-4); LYMPHOCYTES % (MANUAL) 16 % (16-48); MONOCYTES % (MANUAL) 12 % (0-11.0); NEUTROPHILS % (MANUAL) 70 (42-76)
[2021-02-26] MEDS ORDERED: IV NS 0.9% 500 ML BAG IV ONE (20:30)
[2021-02-26] MEDS ORDERED: IV NS 0.9% 250 ML IV ONE (20:44)
[2021-02-26] MEDS ORDERED: IOHEXOL-300 100 ML VIAL IV ONE (20:44)
[2021-02-26] MEDS ORDERED: INSULIN REGULAR, HUMAN 100 UNIT/ML 10 ML VIAL ONE (22:07)
[2021-02-26] MEDS ORDERED: INSULIN REGULAR, HUMAN 100 UNIT/ML 10 ML VIAL SQ ONE (22:30)
[2021-02-27 00:30] VITALS: BP 130/86
[2021-02-27] MEDS ORDERED: ONDANSETRON HCL/PF 4 MG/2 ML VIAL IV PRN (01:30)
[2021-02-27] MEDS ORDERED: INSULIN ASPART/LISPRO 100 UNIT/ML CARTRIDGE SQ ONE (02:00)
[2021-02-27] MEDS ORDERED: INSULIN LISPRO/ASPART 100 UNIT/ML CARTRIDGE SQ ONE (02:32)
[2021-02-27] MEDS: AZITHROMYCIN 250 MG TABLET PO SCH ×2 (02:45→21:25)
[2021-02-27] MEDS: ENOXAPARIN SODIUM 40 MG/0.4 ML DISP.SYRIN SQ SCH ×2 (02:49→21:29)
[2021-02-27] MEDS: IV NS 0.9% 1,000 ML IV PRN ×2 (03:00→14:10)
[2021-02-27 04:00] VITALS: BP 124/80
[2021-02-27] MEDS ORDERED: GABA300C PO (06:46)
[2021-02-27] MEDS ORDERED: OMEP40CA21 PO (06:46)
[2021-02-27] MEDS ORDERED: *INSULIN ASPART NOVOLOG 100 UNIT/ML CARTRIDGE SQ PRN (07:30)
[2021-02-27] MEDS ORDERED: DEXTROSE 50%-WATER 50 ML DISP.SYRIN IV PRN (07:30)
[2021-02-27] MEDS: PANTOPRAZOLE 40 MG TABLET.DR PO SCH (07:51)
[2021-02-27] MEDS: INSULIN ASPART/LISPRO 100 UNIT/ML CARTRIDGE SQ PRN ×3 (07:54→16:56)
[2021-02-27 08:00] VITALS: BP 151/76
[2021-02-27] MEDS: BLOOD SUGAR DIAGNOSTIC 1 EACH STRIP IN SCH ×4 (08:00→21:24)
[2021-02-27 08:35] LABS: CALCIUM, SERUM 8.4 mg/dL (8.5-10.1); CREATININE 1.2 mg/dL (0.6-1.3); POTASSIUM 4.7 mmol/L (3.5-5.1)
[2021-02-27] MEDS: ASPIRIN EC 81 MG TABLET.DR PO SCH (08:55)
[2021-02-27] MEDS: ACETAMINOPHEN 325 MG TABLET PO PRN (08:59)
[2021-02-27] MEDS ORDERED: clonazePAM 2 MG TABLET PO PRN (10:00)
[2021-02-27] MEDS ORDERED: FLUTICASONE PROPIONATE 16 GM BOTTLE NS PRN (10:00)
[2021-02-27 12:00] VITALS: BP 148/72
[2021-02-27] MEDS ORDERED: PNEUMOCOCCAL 23-VAL P-SAC VAC 0.5 ML VIAL SQ ONE (12:30)
[2021-02-27] MEDS: INSULIN ASPART/LISPRO 100 UNIT/ML CARTRIDGE SQ SCH ×2 (12:31→17:35)
[2021-02-27] MEDS: PHENYTOIN EXTENDED RELEASE 100 MG CAPSULE PO SCH ×2 (12:44→16:18)
[2021-02-27] MEDS: GABAPENTIN 300 MG CAPSULE PO SCH ×2 (12:45→16:18)
[2021-02-27] MEDS: INSULIN GLARGINE, 100 UNIT/ML CARTRIDGE SQ SCH ×2 (12:58→20:14)
[2021-02-27 16:00] VITALS: BP 124/70
[2021-02-27] MEDS: ATORVASTATIN 10 MG TABLET PO SCH (17:17)
[2021-02-27 17:20] LABS: BILIRUBIN,URINE NEGATIVE (NEGATIVE); COLOR,URINE YELLOW (YELLOW); LEUKOCYTE ESTERASE ,URINE NEGATIVE (NEGATIVE); NITRITE, URINE NEGATIVE (NEGATIVE); PROTEIN,URINE NEGATIVE (NEGATIVE); UGLUCOSE >=1000 mg/dL (NEGATIVE)
[2021-02-27 17:30] LABS: CREATININE, URINE 37.9 MG/DL (30.0-125.0); URINE TOTAL PROTEIN 9.4 mg/dL (0-11.9)
[2021-02-27 20:00] VITALS: BP 115/78
[2021-02-27] MEDS ORDERED: INSULIN GLARGINE, 100 UNIT/ML CARTRIDGE SQ SCH (22:00)
[2021-02-27] MEDS ORDERED: clonazePAM 1 MG TABLET ONE (23:25)
[2021-02-28] VITALS: BP 104/63
[2021-02-28 02:56] LABS: BASOPHILS % (AUTO) 0.8 % (0.0-2.0); HEMATOCRIT 38 % (39-51); HEMOGLOBIN 13.2 g/dL (13.5-17.5); LYMPHOCYTES # (AUTO) 1.4 /CMM (0.8-4.8); LYMPHOCYTES % (AUTO) 25.4 % (20.0-44.0); MEAN CORPUSCULAR HGB CONC 35 g/dl (31.0-36.0); MEAN CORPUSCULAR VOLUME 89 fL (80-96); MONOCYTES # (AUTO) 0.5 /CMM (0.1-1.30); MONOCYTES % (AUTO) 9.4 % (2.0-12.0); NEUTROPHILS # (AUTO) 3.4 /CMM (1.8-8.9); NEUTROPHILS % (AUTO) 63.4 % (43.0-81.0); RED BLOOD CELL COUNT(AUTO) 4.28 MIL/uL (4.5-6.0); WHITE BLOOD COUNT (AUTO) 5.4 K/uL (4.3-11.0)
[2021-02-28 03:00] LABS: PLATELET COUNT (AUTO) 59 /CMM (150-450)
[2021-02-28 03:10] LABS: ALBUMIN 2.3 g/dL (3.4-5.0); BILIRUBIN,TOTAL 0.6 mg/dL (0.2-1.0); CALCIUM, SERUM 7.7 mg/dL (8.5-10.1); CREATININE 0.9 mg/dL (0.6-1.3); MAGNESIUM 1.8 mg/dL (1.8-2.4); PHOSPHORUS 2.5 mg/dL (2.5-4.9); POTASSIUM 3.9 mmol/L (3.5-5.1); TOTAL PROTEIN, SERUM 5.8 g/dL (6.4-8.2)
[2021-02-28 03:52] LABS: PHENYTOIN (DILANTIN) 1.2 ug/ml (10.0-20.0)
[2021-02-28 04:00] VITALS: BP 115/69
[2021-02-28 04:00] LABS: EOSINOPHILS % (MANUAL) 1 % (0-4); LYMPHOCYTES % (MANUAL) 34 % (16-48); MONOCYTES % (MANUAL) 6 % (0-11.0); NEUTROPHILS % (MANUAL) 59 (42-76)
[2021-02-28] MEDS ORDERED: PANTOPRAZOLE 40 MG TABLET.DR PO SCH (07:30)
[2021-02-28] MEDS: BLOOD SUGAR DIAGNOSTIC 1 EACH STRIP IN SCH ×4 (07:44→21:19)
[2021-02-28] MEDS: PANTOPRAZOLE 40 MG TABLET.DR PO SCH (07:44)
[2021-02-28] MEDS: INSULIN ASPART/LISPRO 100 UNIT/ML CARTRIDGE SQ SCH ×3 (07:48→17:48)
[2021-02-28 08:00] VITALS: BP 114/62
[2021-02-28] MEDS: PHENYTOIN EXTENDED RELEASE 100 MG CAPSULE PO SCH ×3 (08:00→17:36)
[2021-02-28] MEDS: GABAPENTIN 300 MG CAPSULE PO SCH ×3 (08:01→17:36)
[2021-02-28] MEDS: ASPIRIN EC 81 MG TABLET.DR PO SCH (08:01)
[2021-02-28] MEDS: INSULIN GLARGINE, 100 UNIT/ML CARTRIDGE SQ SCH ×2 (08:03→21:22)
[2021-02-28 08:25] LABS: THYROID STIMULATING HORMONE 1.001 uIU/mL (0.358-3.74)
[2021-02-28] MEDS ORDERED: clonazePAM 1 MG TABLET PO PRN (10:00)
[2021-02-28] MEDS: METOPROLOL TARTRATE 50 MG TABLET PO SCH ×2 (12:00→17:37)
[2021-02-28 16:00] VITALS: BP 124/70
[2021-02-28] MEDS: ATORVASTATIN 10 MG TABLET PO SCH (17:36)
[2021-02-28 20:00] VITALS: BP 119/79
[2021-02-28] MEDS: SULFAMETH/TRIMETH 800/160 MG 1 UDTAB TABLET PO SCH (21:18)
[2021-02-28] MEDS: MUPIROCIN OINT 2% 22 GM TUBE NS SCH (21:18)
[2021-02-28] MEDS: clonazePAM 1 MG TABLET PO SCH (21:19)
[2021-02-28] MEDS: AZITHROMYCIN 250 MG TABLET PO SCH (21:22)
[2021-02-28] MEDS: ENOXAPARIN SODIUM 40 MG/0.4 ML DISP.SYRIN SQ SCH (22:00)
[2021-03-01 04:00] VITALS: BP 101/56
[2021-03-01 05:07] LABS: PTH, INTACT 20 pg/mL (15-65)
[2021-03-01] MEDS: METOPROLOL TARTRATE 50 MG TABLET PO SCH ×4 (06:00→17:29)
[2021-03-01 06:37] LABS: BASOPHILS % (AUTO) 0.8 % (0.0-2.0); EOSINOPHILS % (AUTO) 0.6 % (0.0-6.0); HEMATOCRIT 36 % (39-51); HEMOGLOBIN 12.7 g/dL (13.5-17.5); LYMPHOCYTES % (AUTO) 20.3 % (20.0-44.0); MEAN CORPUSCULAR HGB CONC 35 g/dl (31.0-36.0); MEAN CORPUSCULAR VOLUME 88 fL (80-96); MONOCYTES # (AUTO) 0.4 /CMM (0.1-1.30); MONOCYTES % (AUTO) 8.1 % (2.0-12.0); NEUTROPHILS # (AUTO) 3.4 /CMM (1.8-8.9); NEUTROPHILS % (AUTO) 70.2 % (43.0-81.0); PLATELET COUNT (AUTO) 55 /CMM (150-450); WHITE BLOOD COUNT (AUTO) 4.8 K/uL (4.3-11.0)
[2021-03-01] MEDS: MORPHINE SULFATE INJ 2 MG/ML DISP.SYRIN IV PRN ×2 (06:48→14:31)
[2021-03-01 07:01] LABS: CALCIUM, SERUM 7.7 mg/dL (8.5-10.1); CREATININE 0.8 mg/dL (0.6-1.3); POTASSIUM 4.1 mmol/L (3.5-5.1)
[2021-03-01] MEDS: BLOOD SUGAR DIAGNOSTIC 1 EACH STRIP IN SCH ×4 (08:13→21:01)
[2021-03-01] MEDS: PANTOPRAZOLE 40 MG TABLET.DR PO SCH (08:19)
[2021-03-01] MEDS: INSULIN ASPART/LISPRO 100 UNIT/ML CARTRIDGE SQ SCH ×2 (08:22→12:00)
[2021-03-01] MEDS: ASPIRIN EC 81 MG TABLET.DR PO SCH (08:23)
[2021-03-01] MEDS: SULFAMETH/TRIMETH 800/160 MG 1 UDTAB TABLET PO SCH ×2 (08:23→20:52)
[2021-03-01] MEDS: PHENYTOIN EXTENDED RELEASE 100 MG CAPSULE PO SCH ×3 (08:24→17:23)
[2021-03-01] MEDS: GABAPENTIN 300 MG CAPSULE PO SCH ×3 (08:24→17:23)
[2021-03-01] MEDS: clonazePAM 1 MG TABLET PO SCH ×2 (08:24→20:52)
[2021-03-01] MEDS: INSULIN GLARGINE, 100 UNIT/ML CARTRIDGE SQ SCH (08:26)
[2021-03-01] MEDS: MUPIROCIN OINT 2% 22 GM TUBE NS SCH ×2 (08:31→21:18)
[2021-03-01] MEDS ORDERED: LORAZEPAM 1 MG TABLET PO PRN (10:30)
[2021-03-01 12:00] VITALS: BP 115/67
[2021-03-01] MEDS: ACETAMINOPHEN 325 MG TABLET PO PRN (14:05)
[2021-03-01 16:00] VITALS: BP 106/68
[2021-03-01] MEDS ORDERED: NITROGLYCERIN 0.4 MG/TAB BOTTLE ONE (16:13)
[2021-03-01] MEDS ORDERED: IOHEXOL-350 100 ML VIAL IV ONE (16:13)
[2021-03-01] MEDS ORDERED: METOPROLOL TARTRATE INJ 5 MG/5 ML AMPUL ONE (16:14)
[2021-03-01] MEDS ORDERED: IV NS 0.9% 250 ML IV ONE (16:14)
[2021-03-01] MEDS ORDERED: CT SWABBABLE VALVE TRANS SET 1 EA INFUS.SET MC ONE (16:14)
[2021-03-01] MEDS ORDERED: POLYETHYLENE GLYCOL 3350 17 GM POWD.PACK PO PRN (16:30)
[2021-03-01] MEDS ORDERED: BISACODYL (5 MG) 5 MG TABLET.DR PO ONE (16:30)
[2021-03-01] MEDS: ATORVASTATIN 10 MG TABLET PO SCH (17:24)
[2021-03-01] MEDS: DOCUSATE SODIUM 100 MG CAPSULE PO SCH (17:24)
[2021-03-01] MEDS ORDERED: INSULIN ASPART/LISPRO 100 UNIT/ML CARTRIDGE SQ SCH (17:30)
[2021-03-01 17:41] LABS: OCCULT BLOOD STOOL NEGATIVE (NEGATIVE)
[2021-03-01 20:00] VITALS: BP 119/71
[2021-03-01] MEDS ORDERED: INSULIN GLARGINE, 100 UNIT/ML CARTRIDGE SQ SCH (21:00)
[2021-03-01] MEDS: AZITHROMYCIN 250 MG TABLET PO SCH (21:01)
[2021-03-02] MEDS: METOPROLOL TARTRATE 50 MG TABLET PO SCH ×4 (00:17→18:21)
[2021-03-02 04:00] VITALS: BP 124/83
[2021-03-02] MEDS: MORPHINE SULFATE INJ 2 MG/ML DISP.SYRIN IV PRN ×3 (04:47→19:56)
[2021-03-02 06:38] LABS: BASOPHILS # (AUTO) 0.1 /CMM (0.0-0.2); EOSINOPHILS % (AUTO) 0.6 % (0.0-6.0); HEMATOCRIT 37 % (39-51); HEMOGLOBIN 12.6 g/dL (13.5-17.5); LYMPHOCYTES # (AUTO) 0.9 /CMM (0.8-4.8); LYMPHOCYTES % (AUTO) 15.8 % (20.0-44.0); MEAN CORPUSCULAR HGB CONC 34 g/dl (31.0-36.0); MEAN CORPUSCULAR VOLUME 91 fL (80-96); MONOCYTES # (AUTO) 0.6 /CMM (0.1-1.30); MONOCYTES % (AUTO) 10.8 % (2.0-12.0); NEUTROPHILS # (AUTO) 3.9 /CMM (1.8-8.9); NEUTROPHILS % (AUTO) 71.8 % (43.0-81.0); PLATELET COUNT (AUTO) 56 /CMM (150-450); RED BLOOD CELL COUNT(AUTO) 4.11 MIL/uL (4.5-6.0); WHITE BLOOD COUNT (AUTO) 5.5 K/uL (4.3-11.0)
[2021-03-02 07:04] LABS: CALCIUM, SERUM 7.6 mg/dL (8.5-10.1); CREATININE 1.2 mg/dL (0.6-1.3); POTASSIUM 4.6 mmol/L (3.5-5.1)
[2021-03-02 07:23] LABS: BAND % (MANUAL) 1 % (0.0-5.0); EOSINOPHILS % (MANUAL) 1 % (0-4); LYMPHOCYTES % (MANUAL) 16 % (16-48); MONOCYTES % (MANUAL) 9 % (0-11.0); NEUTROPHILS % (MANUAL) 73 (42-76)
[2021-03-02 08:00] VITALS: BP 119/65
[2021-03-02] MEDS: PHENYTOIN EXTENDED RELEASE 100 MG CAPSULE PO SCH ×2 (08:24→18:20)
[2021-03-02] MEDS: clonazePAM 1 MG TABLET PO SCH ×2 (08:24→21:09)
[2021-03-02] MEDS: SULFAMETH/TRIMETH 800/160 MG 1 UDTAB TABLET PO SCH ×2 (08:24→21:09)
[2021-03-02] MEDS: DOCUSATE SODIUM 100 MG CAPSULE PO SCH ×2 (08:24→18:20)
[2021-03-02] MEDS: GABAPENTIN 300 MG CAPSULE PO SCH ×3 (08:24→18:20)
[2021-03-02] MEDS: ASPIRIN EC 81 MG TABLET.DR PO SCH (08:24)
[2021-03-02] MEDS: MUPIROCIN OINT 2% 22 GM TUBE NS SCH ×2 (08:25→21:45)
[2021-03-02] MEDS: BLOOD SUGAR DIAGNOSTIC 1 EACH STRIP IN SCH ×4 (08:29→21:42)
[2021-03-02] MEDS: PANTOPRAZOLE 40 MG TABLET.DR PO SCH (08:29)
[2021-03-02] MEDS: INSULIN GLARGINE, 100 UNIT/ML CARTRIDGE SQ SCH ×2 (09:00→21:41)
[2021-03-02] MEDS ORDERED: PHENYTOIN EXTENDED RELEASE 100 MG CAPSULE PO ONE (09:00)
[2021-03-02] MEDS: METFORMIN 500 MG TABLET PO SCH ×2 (09:16→18:21)
[2021-03-02] MEDS: INSULIN ASPART/LISPRO 100 UNIT/ML CARTRIDGE SQ SCH ×2 (12:42→18:26)
[2021-03-02 16:00] VITALS: BP 120/74
[2021-03-02] MEDS: ATORVASTATIN 10 MG TABLET PO SCH (18:21)
[2021-03-02 20:00] VITALS: BP 114/64
[2021-03-03] MEDS: MORPHINE SULFATE INJ 2 MG/ML DISP.SYRIN IV PRN (03:04)
[2021-03-03 04:00] VITALS: BP 105/60
[2021-03-03 06:00] VITALS: BP 94/56
[2021-03-03] MEDS: METOPROLOL TARTRATE 50 MG TABLET PO SCH ×2 (06:00)
[2021-03-03] MEDS: PANTOPRAZOLE 40 MG TABLET.DR PO SCH (07:30)
[2021-03-03] MEDS: INSULIN ASPART/LISPRO 100 UNIT/ML CARTRIDGE SQ SCH (07:30)
[2021-03-03] MEDS: BLOOD SUGAR DIAGNOSTIC 1 EACH STRIP IN SCH (07:50)
[2021-03-03 08:57] LABS: BASOPHILS # (AUTO) 0.1 /CMM (0.0-0.2); EOSINOPHILS % (AUTO) 0.9 % (0.0-6.0); HEMATOCRIT 37 % (39-51); HEMOGLOBIN 12.7 g/dL (13.5-17.5); LYMPHOCYTES # (AUTO) 0.8 /CMM (0.8-4.8); LYMPHOCYTES % (AUTO) 15.5 % (20.0-44.0); MEAN CORPUSCULAR HGB CONC 34 g/dl (31.0-36.0); MEAN CORPUSCULAR VOLUME 91 fL (80-96); MONOCYTES # (AUTO) 0.6 /CMM (0.1-1.30); MONOCYTES % (AUTO) 11.7 % (2.0-12.0); NEUTROPHILS # (AUTO) 3.8 /CMM (1.8-8.9); NEUTROPHILS % (AUTO) 70.9 % (43.0-81.0); PLATELET COUNT (AUTO) 54 /CMM (150-450); RED BLOOD CELL COUNT(AUTO) 4.14 MIL/uL (4.5-6.0); WHITE BLOOD COUNT (AUTO) 5.3 K/uL (4.3-11.0)
[2021-03-03] MEDS: ASPIRIN EC 81 MG TABLET.DR PO SCH (09:00)
[2021-03-03] MEDS: GABAPENTIN 300 MG CAPSULE PO SCH (09:00)
[2021-03-03] MEDS: MUPIROCIN OINT 2% 22 GM TUBE NS SCH (09:00)
[2021-03-03] MEDS: clonazePAM 1 MG TABLET PO SCH (09:00)
[2021-03-03] MEDS: INSULIN GLARGINE, 100 UNIT/ML CARTRIDGE SQ SCH (09:00)
[2021-03-03] MEDS: SULFAMETH/TRIMETH 800/160 MG 1 UDTAB TABLET PO SCH (09:00)
[2021-03-03] MEDS: METFORMIN 500 MG TABLET PO SCH (09:00)
[2021-03-03] MEDS: PHENYTOIN EXTENDED RELEASE 100 MG CAPSULE PO SCH (09:00)
[2021-03-03] MEDS: DOCUSATE SODIUM 100 MG CAPSULE PO SCH (09:00)
[2021-03-03 09:10] LABS: CALCIUM, SERUM 7.6 mg/dL (8.5-10.1); POTASSIUM 4.6 mmol/L (3.5-5.1)
[2021-03-04 10:07] LABS: *SPE A/G RATIO 0.8 (0.7-1.7); *SPE ALBUMIN 2.4 g/dL (2.9-4.4); *SPE ALBUMIN 2.5 g/dL (2.9-4.4); *SPE ALPHA-1-GLOBULIN 0.2 g/dL (0.0-0.4); *SPE ALPHA-2-GLOBULIN 0.7 g/dL (0.4-1.0); *SPE ALPHA-2-GLOBULIN 0.8 g/dL (0.4-1.0); *SPE BETA GLOBULIN 0.8 g/dL (0.7-1.3); *SPE BETA GLOBULIN 0.9 g/dL (0.7-1.3); *SPE GLOBULIN, TOTAL 3.1 g/dL (2.2-3.9); *SPE M-SPIKE Not Observed g/dL (Not Observed); *SPEGAMMA GLOBULIN 1.1 g/dL (0.4-1.8); *SPEGAMMA GLOBULIN 1.2 g/dL (0.4-1.8)
== END 2021-03-03 15:46 | disposition home health service (06) | DRG 637 ==
LOC: ER 19:01 → TELE1 23:40 → MEDSG1 02-28 07:53
PROVIDERS: ADMIT Internal Medicine; ATTEND Internal Medicine
DX: E11.65 Type 2 diabetes mellitus with hyperglycemia (principal); N17.0 Acute kidney failure with tubular necrosis; D61.818 Other pancytopenia; K76.6 Portal hypertension; R07.9 Chest pain, unspecified; I50.9 Heart failure, unspecified; I25.10 Atherosclerotic heart disease of native coronary artery without angina pectoris; J45.909 Unspecified asthma, uncomplicated; I11.0 Hypertensive heart disease with heart failure; Z86.73 Personal history of transient ischemic attack (TIA), and cerebral infarction without residual deficits; G40.909 Epilepsy, unspecified, not intractable, without status epilepticus; K74.60 Unspecified cirrhosis of liver; E78.5 Hyperlipidemia, unspecified; E11.40 Type 2 diabetes mellitus with diabetic neuropathy, unspecified; I25.2 Old myocardial infarction; E86.1 Hypovolemia; Z79.4 Long term (current) use of insulin; Z91.19 Patient's noncompliance with other medical treatment and regimen; Z66 Do not resuscitate; M16.0 Bilateral primary osteoarthritis of hip; Z82.49 Family history of ischemic heart disease and other diseases of the circulatory system; Z95.5 Presence of coronary angioplasty implant and graft; Z86.19 Personal history of other infectious and parasitic diseases; J44.9 Chronic obstructive pulmonary disease, unspecified; R53.1 Weakness; R00.0 Tachycardia, unspecified; F41.9 Anxiety disorder, unspecified; L40.9 Psoriasis, unspecified; M51.37 Other intervertebral disc degeneration, lumbosacral region; D69.6 Thrombocytopenia, unspecified; Z22.322 Carrier or suspected carrier of Methicillin resistant Staphylococcus aureus; M25.551 Pain in right hip; M25.561 Pain in right knee; R16.1 Splenomegaly, not elsewhere classified; I86.4 Gastric varices; Z20.822 Contact with and (suspected) exposure to COVID-19; E66.3 Overweight; Z68.27 Body mass index [BMI] 27.0-27.9, adult; F17.200 Nicotine dependence, unspecified, uncomplicated
CPT/HCPCS: 36415; 71045-TC; 73502; 75574; 76705-TC; 80048-TC; 80053-TC; 80061-TC; 80076-TC; 80185-TC; 82105; 82272-TC; 82550-TC; 82570-TC; 82962-TC; 83690-TC; 83735-TC; 83880; 83970; 84100-TC; 84155; 84155-TC; 84165; 84300-TC; 84439-TC; 84443-TC; 84484-TC; 85025-TC; 85730-TC; 87081-TC; 90732; 93307-TC; C9803; G0378; J1650; J1815; J2270; J2405; J3490; J7030; J7040; J7050; Q9967; U0003

== ENCOUNTER 2021-09-03 03:05 | Emergency (ER) | payer MEDICARE, OTHER ==
[~2021-09-03] VITALS: Ht 185.4 cm; Wt 110.2 kg
[~2021-09-03 03:05] MED LIST changes: -DICL75TA5 PO; +GABA300C PO; -GUAI100S11 PO; -METF-442 PO; +OMEP40CA21 PO; -SUMA100T16 PO; -TRAM50TA2 PO
[2021-09-03 03:33] VITALS: BP 146/86
[2021-09-03] MEDS ORDERED: TRAM50TA2 PO (03:51)
[2021-09-03] MEDS ORDERED: HYDROCODONE/APAP 5/325MG TABLET ONE (03:55)
--- NOTE | 2021-09-03 03:59 | NUR ---
Patient discharged to home in stable condition. Written and verbal after care instructions given. Patient verbalizes understanding of instruction. Pt wheeled out to friend's car.
[2021-09-03] MEDS ORDERED: HYDROCODONE/APAP 5/325MG TABLET PO ONE (04:00)
== END 2021-09-03 04:10 | disposition home or self-care (01) ==
LOC: ER 03:08
DX: E11.65 Type 2 diabetes mellitus with hyperglycemia (principal); M79.672 Pain in left foot; M79.671 Pain in right foot; I11.0 Hypertensive heart disease with heart failure; I50.9 Heart failure, unspecified; E11.40 Type 2 diabetes mellitus with diabetic neuropathy, unspecified; J45.909 Unspecified asthma, uncomplicated; F17.210 Nicotine dependence, cigarettes, uncomplicated; G89.29 Other chronic pain; Z86.73 Personal history of transient ischemic attack (TIA), and cerebral infarction without residual deficits; Z98.890 Other specified postprocedural states; Z79.899 Other long term (current) drug therapy
CPT/HCPCS: 82962-TC

== ENCOUNTER 2022-02-18 22:48 | Emergency (ER) | payer MEDICARE, OTHER ==
[~2022-02-18] VITALS: Ht 185.4 cm; Wt 99.8 kg
[~2022-02-18 22:48] MED LIST changes: +TRAM50TA2 PO
[2022-02-18] MEDS ORDERED: ONDANSETRON HCL/PF 4 MG/2 ML VIAL IVP ONE (23:00)
[2022-02-18] MEDS ORDERED: IV NS 0.9% 1,000 ML BAG IV ONE (23:00)
[2022-02-18] MEDS ORDERED: KETOROLAC TROMETHAMINE INJ 30 MG/ML VIAL IV ONE (23:00)
--- NOTE | 2022-02-18 23:03 | NUR ---
BIBS C/O L FLANK PAIN X3DAYS. -N/V +D. HX OF KIDNEY STONES. PATIENT ALERT AND ORIENTED X3. AMBULATORY WITH NON LABORED BREATHING IN BED 07 ON MONITOR AND POX AWAITING MD DAVE.
--- NOTE | 2022-02-18 23:03 | NUR ---
URINE COLLECTED AND SENT TO LAB
[2022-02-18] MEDS ORDERED: ONDANSETRON HCL/PF 4 MG/2 ML VIAL ONE (23:10)
[2022-02-18] MEDS ORDERED: KETOROLAC TROMETHAMINE INJ 30 MG/ML VIAL ONE (23:11)
--- NOTE | 2022-02-18 23:21 | NUR ---
IV CANNULA G18 INSERTED ON LEFT AC. BLOOD DRAWN AND SENT TO LAB
[2022-02-18 23:34] LABS: BASOPHILS % (AUTO) 1.1 % (0.0-2.0); EOSINOPHILS % (AUTO) 1.4 % (0.0-6.0); HEMATOCRIT 40 % (39-51); HEMOGLOBIN 13.9 g/dL (13.5-17.5); LYMPHOCYTES # (AUTO) 0.8 K/uL (0.8-4.8); LYMPHOCYTES % (AUTO) 23.6 % (20.0-44.0); MEAN CORPUSCULAR HGB CONC 34 g/dl (31.0-36.0); MEAN CORPUSCULAR VOLUME 89 fL (80-96); MONOCYTES # (AUTO) 0.3 K/uL (0.1-1.30); MONOCYTES % (AUTO) 9.6 % (2.0-12.0); NEUTROPHILS # (AUTO) 2.3 K/uL (1.8-8.9); NEUTROPHILS % (AUTO) 64.3 % (43.0-81.0); RED BLOOD CELL COUNT(AUTO) 4.53 MIL/uL (4.5-6.0); WHITE BLOOD COUNT (AUTO) 3.6 K/uL (4.3-11.0)
[2022-02-18 23:37] LABS: BILIRUBIN,URINE SMALL (NEGATIVE); COLOR,URINE YELLOW (YELLOW); LEUKOCYTE ESTERASE ,URINE NEGATIVE (NEGATIVE); NITRITE, URINE NEGATIVE (NEGATIVE); PROTEIN,URINE 100 mg/dl (NEGATIVE); UGLUCOSE >=1000 mg/dL (NEGATIVE)
[2022-02-18 23:50] LABS: CALCIUM, SERUM 7.8 mg/dL (8.5-10.1); CREATININE 0.7 mg/dL (0.6-1.3); POTASSIUM 3.5 mmol/L (3.5-5.1)
[2022-02-18 23:56] LABS: BILIRUBIN,DIRECT 0.2 mg/dL (0.0-0.2); BILIRUBIN,TOTAL 0.6 mg/dL (0.2-1.0)
[2022-02-19 00:30] VITALS: BP 150/80
--- NOTE | 2022-02-19 00:30 | NUR ---
Patient discharged to home in stable condition. Written and verbal after care instructions given. Patient verbalizes understanding of instruction.
[2022-02-19 10:43] LABS: PLATELET COUNT (AUTO) 56 K/uL (150-450)
== END 2022-02-19 00:31 | disposition home or self-care (01) ==
LOC: ER 22:55
DX: M54.50 Low back pain, unspecified (principal); K22.9 Disease of esophagus, unspecified; I11.0 Hypertensive heart disease with heart failure; I50.9 Heart failure, unspecified; J45.909 Unspecified asthma, uncomplicated; E11.9 Type 2 diabetes mellitus without complications; G89.29 Other chronic pain; F17.200 Nicotine dependence, unspecified, uncomplicated; Z87.442 Personal history of urinary calculi; Z86.69 Personal history of other diseases of the nervous system and sense organs; Z79.899 Other long term (current) drug therapy
CPT/HCPCS: 36415; 74176; 80048; 80076; 81003; 83690; 85007; 85025; 85730; 96374; 96375; 99284; J1885; J2405; J7030

== ENCOUNTER 2024-03-02 17:54 | Emergency (ER) | payer OTHER, MEDICAID ==
[~2024-03-02] VITALS: Ht 175.3 cm; Wt 105.7 kg
[2024-03-02 18:50] LABS: BASOPHILS % (AUTO) 1.2 % (0.0-2.0); EOSINOPHILS # (AUTO) 0.1 K/uL (0.0-0.7); EOSINOPHILS % (AUTO) 2.4 % (0.0-6.0); HEMATOCRIT 33 % (39-51); HEMOGLOBIN 11.6 g/dL (13.5-17.5); LYMPHOCYTES # (AUTO) 0.8 K/uL (0.8-4.8); LYMPHOCYTES % (AUTO) 24.4 % (20.0-44.0); MEAN CORPUSCULAR HEMOGLOBIN 31 PG (26.0-33.0); MEAN CORPUSCULAR HGB CONC 35 g/dl (31.0-36.0); MEAN CORPUSCULAR VOLUME 89 fL (80-96); MONOCYTES # (AUTO) 0.4 K/uL (0.1-1.30); MONOCYTES % (AUTO) 12.2 % (2.0-12.0); NEUTROPHILS # (AUTO) 2.1 K/uL (1.8-8.9); NEUTROPHILS % (AUTO) 59.8 % (43.0-81.0); PLATELET COUNT (AUTO) 69 K/uL (150-450); RED BLOOD CELL COUNT(AUTO) 3.72 MIL/uL (4.5-6.0); RED CELL DISTRIBUTION WIDTH 15.9 % (11.5-15.0); WHITE BLOOD COUNT (AUTO) 3.4 K/uL (4.3-11.0)
[2024-03-02 18:55] LABS: CALCIUM, SERUM 7.8 mg/dL (8.5-10.1); CREATININE 0.8 mg/dL (0.6-1.3); POTASSIUM 4.4 mmol/L (3.5-5.1)
[2024-03-02 19:01] LABS: BILIRUBIN,DIRECT 0.3 mg/dL (0.0-0.2); BILIRUBIN,TOTAL 0.6 mg/dL (0.2-1.0); TOTAL PROTEIN, SERUM 5.8 g/dL (6.4-8.2)
[2024-03-02 19:03] VITALS: TEMP 98
[2024-03-02 19:18] LABS: INR 1.02 (0.91-1.10); PARTIAL THROMBOPLASTIN TIME 25.9 SEC (24.3-34.3); PROTHROMBIN TIME 10.5 SECS (9.2-11.1)
[2024-03-02 20:06] LABS: EOSINOPHILS % (MANUAL) 3 % (0-4); LYMPHOCYTES % (MANUAL) 31 % (16-48); METAMYELOCYTES % 1 % (0-0); MONOCYTES % (MANUAL) 7 % (0-11.0); NEUTROPHILS % (MANUAL) 58 (42-76)
[2024-03-02 20:07] LABS: ANISOCYTOSIS 1+; PLATELET ESTIMATE DECREASED
[2024-03-03 00:09] VITALS: BP 121/74; O2SAT 98
== END 2024-03-03 00:11 | disposition home or self-care (01) ==
LOC: ER 18:05
DX: K74.60 Unspecified cirrhosis of liver (principal); R56.9 Unspecified convulsions; I11.0 Hypertensive heart disease with heart failure; I50.9 Heart failure, unspecified; J45.909 Unspecified asthma, uncomplicated; E11.9 Type 2 diabetes mellitus without complications; F10.10 Alcohol abuse, uncomplicated; F17.200 Nicotine dependence, unspecified, uncomplicated; F17.210 Nicotine dependence, cigarettes, uncomplicated; Z87.39 Personal history of other diseases of the musculoskeletal system and connective tissue; Z86.59 Personal history of other mental and behavioral disorders; Y90.9 Presence of alcohol in blood, level not specified
CPT/HCPCS: 36415; 80048-TC; 80076-TC; 82962-TC; 85025-TC; 85730-TC

== ENCOUNTER 2024-04-28 12:15 | Emergency (ER) | payer OTHER, MEDICAID ==
[~2024-04-28] VITALS: Ht 188 cm; Wt 115.7 kg
[2024-04-28] MEDS ORDERED: MORPHINE SULFATE INJ 2 MG/ML DISP.SYRIN ONE (13:11)
[2024-04-28 13:20] LABS: BASOPHILS % (AUTO) 1.3 % (0.0-2.0); EOSINOPHILS # (AUTO) 0.1 K/uL (0.0-0.7); EOSINOPHILS % (AUTO) 1.9 % (0.0-6.0); HEMATOCRIT 32 % (39-51); HEMOGLOBIN 10.9 g/dL (13.5-17.5); LYMPHOCYTES # (AUTO) 0.8 K/uL (0.8-4.8); LYMPHOCYTES % (AUTO) 25.6 % (20.0-44.0); MEAN CORPUSCULAR HEMOGLOBIN 29 PG (26.0-33.0); MEAN CORPUSCULAR HGB CONC 34 g/dl (31.0-36.0); MEAN CORPUSCULAR VOLUME 86 fL (80-96); MONOCYTES # (AUTO) 0.4 K/uL (0.1-1.30); MONOCYTES % (AUTO) 12.3 % (2.0-12.0); NEUTROPHILS # (AUTO) 1.9 K/uL (1.8-8.9); NEUTROPHILS % (AUTO) 58.9 % (43.0-81.0); PLATELET COUNT (AUTO) 80 K/uL (150-450); RED CELL DISTRIBUTION WIDTH 15.6 % (11.5-15.0); WHITE BLOOD COUNT (AUTO) 3.2 K/uL (4.3-11.0)
[2024-04-28] MEDS: MORPHINE SULFATE INJ 2 MG/ML DISP.SYRIN IV ONE (13:25)
[2024-04-28 13:29] LABS: CALCIUM, SERUM 7.8 mg/dL (8.5-10.1); CARBON DIOXIDE 26 mmol/L (21-32); CHLORIDE 106 mmol/L (98-107); CREATININE 0.9 mg/dL (0.6-1.3); GLUCOSE 185 mg/dL (74-106); POTASSIUM 3.7 mmol/L (3.5-5.1); SODIUM SERUM 136 mmol/L (136-145); UREA NITROGEN, BLOOD 14 mg/dL (7-18)
[2024-04-28 13:32] LABS: INR 1.11 (0.91-1.10); PROTHROMBIN TIME 11.3 SECS (9.2-11.1)
[2024-04-28 13:35] LABS: ALANINE AMINOTRANSFERASE 24 U/L (12-78); ALKALINE PHOSPHATASE 106 U/L (46-116); ASPARTATE AMINOTRANSFERASE 32 U/L (15-37); BILIRUBIN,DIRECT 0.3 mg/dL (0.0-0.2); BILIRUBIN,TOTAL 0.9 mg/dL (0.2-1.0); LIPASE 35 U/L (16-77); TOTAL PROTEIN, SERUM 5.7 g/dL (6.4-8.2)
[2024-04-28] MEDS ORDERED: ONDANSETRON HCL/PF 4 MG/2 ML VIAL ONE (14:50)
[2024-04-28] MEDS: ONDANSETRON HCL/PF - ER 4 MG/2 ML VIAL IV ONE (14:51)
[2024-04-28 15:32] LABS: LYMPHOCYTES % (MANUAL) 31 % (16-48); MONOCYTES % (MANUAL) 10 % (0-11.0); NEUTROPHILS % (MANUAL) 59 (42-76); PLATELET ESTIMATE DECREASED
[2024-04-28 15:34] LABS: ANISOCYTOSIS 1+; OVALOCYTES 1+
[2024-04-28 20:25] VITALS: BP 122/78; TEMP 98.2; O2SAT 96
== END 2024-04-28 21:19 | disposition left against medical advice (07) ==
LOC: ER 12:19
DX: R18.8 Other ascites (principal); R56.9 Unspecified convulsions; I11.0 Hypertensive heart disease with heart failure; I50.9 Heart failure, unspecified; J45.909 Unspecified asthma, uncomplicated; E11.40 Type 2 diabetes mellitus with diabetic neuropathy, unspecified; F41.0 Panic disorder [episodic paroxysmal anxiety]; G89.29 Other chronic pain; F17.210 Nicotine dependence, cigarettes, uncomplicated; Z95.5 Presence of coronary angioplasty implant and graft; Z86.73 Personal history of transient ischemic attack (TIA), and cerebral infarction without residual deficits; Z60.2 Problems related to living alone; Z20.822 Contact with and (suspected) exposure to COVID-19; Z87.19 Personal history of other diseases of the digestive system
CPT/HCPCS: 99291; 74176; 96374; 96375; 87426; 93005; 85025; 80048; 83690; 80076; 36415; 84484; 85730; 86850; 83880; 85007; J2405; J2270

== ENCOUNTER 2024-06-06 11:58 | Emergency (ER) | payer OTHER, MEDICAID ==
[~2024-06-06] VITALS: Ht 185.4 cm; Wt 124.3 kg
--- NOTE | 2024-06-06 12:10 | NUR ---
[id number] FROM FACILITY FOR ABD PAIN AND DISTENTION X 3 DAYS
--- NOTE | 2024-06-06 12:19 | NUR ---
18g IV established in the LAC. Blood drawn and sent to lab for processing.
[2024-06-06 12:56] LABS: BASOPHILS % (AUTO) 0.9 % (0.0-2.0); EOSINOPHILS # (AUTO) 0.1 K/uL (0.0-0.7); EOSINOPHILS % (AUTO) 2.1 % (0.0-6.0); HEMATOCRIT 36 % (39-51); HEMOGLOBIN 12.6 g/dL (13.5-17.5); LYMPHOCYTES # (AUTO) 1.1 K/uL (0.8-4.8); LYMPHOCYTES % (AUTO) 23.7 % (20.0-44.0); MEAN CORPUSCULAR HEMOGLOBIN 30 PG (26.0-33.0); MEAN CORPUSCULAR HGB CONC 35 g/dl (31.0-36.0); MEAN CORPUSCULAR VOLUME 87 fL (80-96); MONOCYTES # (AUTO) 0.7 K/uL (0.1-1.30); MONOCYTES % (AUTO) 14.7 % (2.0-12.0); NEUTROPHILS # (AUTO) 2.6 K/uL (1.8-8.9); NEUTROPHILS % (AUTO) 58.6 % (43.0-81.0); PLATELET COUNT (AUTO) 118 K/uL (150-450); RED BLOOD CELL COUNT(AUTO) 4.19 MIL/uL (4.5-6.0); RED CELL DISTRIBUTION WIDTH 16.5 % (11.5-15.0); WHITE BLOOD COUNT (AUTO) 4.5 K/uL (4.3-11.0)
[2024-06-06] MEDS ORDERED: MORPHINE SULFATE INJ 4 MG/ML DISP.SYRIN ONE (13:04)
[2024-06-06] MEDS ORDERED: ONDANSETRON HCL/PF 4 MG/2 ML VIAL ONE (13:04)
[2024-06-06] MEDS: MORPHINE SULFATE INJ 2 MG/ML DISP.SYRIN IV ONE (13:07)
[2024-06-06] MEDS: ONDANSETRON HCL/PF 4 MG/2 ML VIAL IVP ONE (13:08)
[2024-06-06 13:09] LABS: BILIRUBIN,DIRECT 0.5 mg/dL (0.0-0.2); CALCIUM, SERUM 8.3 mg/dL (8.5-10.1); CREATININE 0.7 mg/dL (0.6-1.3); POTASSIUM 3.4 mmol/L (3.5-5.1); TOTAL PROTEIN, SERUM 5.7 g/dL (6.4-8.2)
--- NOTE | 2024-06-06 13:12 | NUR ---
move sheet and clinicals submitted
--- NOTE | 2024-06-06 13:14 | NUR ---
MRSA sent to lab
--- NOTE | 2024-06-06 13:15 | NUR ---
Patient to CT scan via rney
--- NOTE | 2024-06-06 13:23 | NUR ---
Patient back from CT
--- NOTE | 2024-06-06 14:28 | NUR ---
Yasmine from [facility] called. Pt is likely to be transferred to [facility]. Requesting COVID test and a note that says stable for transfer. Yasmine's cell: [phone]
[2024-06-06] MEDS ORDERED: LACTULOSE 10 G/15 ML UDC (PYXIS) ONE (14:32)
[2024-06-06] MEDS: LACTULOSE 10 G/15 ML UDC (PYXIS) PO ONE (14:32)
--- NOTE | 2024-06-06 15:36 | NUR ---
covid results are resulted, faxed clinicals to Yasmine of [facility]
--- NOTE | 2024-06-06 15:49 | NUR ---
peer to peer approx 320pm
--- NOTE | 2024-06-06 16:43 | NUR ---
Per Yasmine from [facility], pt accepted by Dr Aggarwal to [facility] Room 202A for report [phone]. Yasmine will call back for ETA for transport
--- NOTE | 2024-06-06 17:19 | NUR ---
Report given to Estrada from [facility]
--- NOTE | 2024-06-06 18:17 | NUR ---
Report given to EMS for transfer
[2024-06-06 18:44] VITALS: BP 135/91; TEMP 99.1; O2SAT 98
== END 2024-06-06 18:45 | disposition short-term general hospital (02) ==
LOC: ER 12:00
DX: K74.60 Unspecified cirrhosis of liver (principal); R18.8 Other ascites; I11.0 Hypertensive heart disease with heart failure; I50.9 Heart failure, unspecified; J45.909 Unspecified asthma, uncomplicated; E11.40 Type 2 diabetes mellitus with diabetic neuropathy, unspecified; G89.29 Other chronic pain; F17.210 Nicotine dependence, cigarettes, uncomplicated; Z86.59 Personal history of other mental and behavioral disorders; Z60.2 Problems related to living alone; Z87.828 Personal history of other (healed) physical injury and trauma; Z20.822 Contact with and (suspected) exposure to COVID-19
CPT/HCPCS: 99285; 74176; 96374; 96375; 87426; 82140; 85025; 80048; 83690; 80076; 36415; J2270; J2405

== ENCOUNTER 2024-11-26 23:56 | Inpatient (IN) | payer MEDICARE, OTHER ==
[~2024-11-26] VITALS: Ht 185.4 cm; Wt 86.7 kg
[2024-11-27 00:36] LABS: BASOPHILS % (AUTO) 0.5 % (0.0-2.0); EOSINOPHILS % (AUTO) 0.9 % (0.0-6.0); HEMATOCRIT 32 % (39-51); LYMPHOCYTES # (AUTO) 0.4 K/uL (0.8-4.8); LYMPHOCYTES % (AUTO) 9.6 % (20.0-44.0); MEAN CORPUSCULAR HEMOGLOBIN 29 PG (26.0-33.0); MEAN CORPUSCULAR HGB CONC 35 g/dl (31.0-36.0); MEAN CORPUSCULAR VOLUME 84 fL (80-96); MONOCYTES # (AUTO) 0.4 K/uL (0.1-1.30); NEUTROPHILS # (AUTO) 3.7 K/uL (1.8-8.9); PLATELET COUNT (AUTO) 70 K/uL (150-450); RED CELL DISTRIBUTION WIDTH 17.3 % (11.5-15.0); WHITE BLOOD COUNT (AUTO) 4.6 K/uL (4.3-11.0)
[2024-11-27 00:44] LABS: CARBON DIOXIDE 28 mmol/L (21-32); CHLORIDE 105 mmol/L (98-107); GLUCOSE 213 mg/dL (74-106); POTASSIUM 3.9 mmol/L (3.5-5.1); SODIUM SERUM 140 mmol/L (136-145); UREA NITROGEN, BLOOD 23 mg/dL (7-18)
[2024-11-27 00:46] LABS: SERUM AMMONIA 78 umol/L (11-32)
[2024-11-27 00:51] LABS: ALANINE AMINOTRANSFERASE 16 U/L (12-78); ALBUMIN 2.7 g/dL (3.4-5.0); ALCOHOL, BLOOD < 3 mg/dL (0-10); ALKALINE PHOSPHATASE 124 U/L (46-116); ASPARTATE AMINOTRANSFERASE 48 U/L (15-37); BILIRUBIN,DIRECT 0.3 mg/dL (0.0-0.2); BILIRUBIN,TOTAL 0.8 mg/dL (0.2-1.0); CALCIUM, SERUM 8.2 mg/dL (8.5-10.1); INR 1.06 (0.91-1.10); PARTIAL THROMBOPLASTIN TIME 28.2 SEC (24.3-34.3); PROTHROMBIN TIME 11.2 SECS (9.2-11.1); TOTAL PROTEIN, SERUM 6.7 g/dL (6.4-8.2)
[2024-11-27 00:55] LABS: LACTIC ACID 2.2 mmol/L (0.4-2.0)
[2024-11-27 01:33] LABS: APPEARANCE,URINE CLEAR (CLEAR); BILIRUBIN,URINE NEGATIVE (NEGATIVE); BLOOD, URINE TRACE-INTA Ery/uL (NEGATIVE); COLOR,URINE YELLOW (YELLOW); KETONES,URINE NEGATIVE (NEGATIVE); LEUKOCYTE ESTERASE ,URINE NEGATIVE (NEGATIVE); NITRITE, URINE NEGATIVE (NEGATIVE); PROTEIN,URINE TRACE mg/dl (NEGATIVE); UGLUCOSE NEGATIVE (NEGATIVE); UROBILINOGEN,URINE 0.2 EU/dL (0.2)
[2024-11-27 01:39] LABS: ADD URINE CULTURE NO; BACTERIA,URINE Few /HPF (None Seen); MUCUS,URINE Few /LPF (None Seen); RBC,URINE 0-2 /HPF (0-2); SQUAMOUS EPITHELIAL CELL,UR None Seen /HPF (None Seen); WBC,URINE 0-2 /HPF (0-3)
[2024-11-27 01:48] LABS: BARBITURATE, URINE NEGATIVE (NEGATIVE); CANNABINOID, URINE NEGATIVE (NEGATIVE); COCCAINE, URINE NEGATIVE (NEGATIVE); PHENCYCLIDINE SCREEN,URINE NEGATIVE (NEGATIVE)
[2024-11-27 01:49] LABS: AMPHETAMINE, URINE POSITIVE (NEGATIVE); BENZODIAZEPINE, URINE POSITIVE (NEGATIVE); OPIATE, URINE POSITIVE (NEGATIVE)
[2024-11-27] MEDS ORDERED: CEFEPIME 1 GM VIAL ONE (02:01)
[2024-11-27] MEDS: CEFEPIME 1 GM in IV D5W 50 ML IV ONE (02:13)
[2024-11-27] MEDS: IV NS 0.9% 500 ML BAG IV ONE (02:13)
[2024-11-27] MEDS ORDERED: VANCOMYCIN 1 GM /D5W 250 ML PB IV ONE (02:38)
[2024-11-27] MEDS: VANCOMYCIN 1 GM in IV D5W 250 ML IV ONE (02:43)
[2024-11-27] MEDS ORDERED: MAG HYDROX/AL HYDROX/SIMETH 30 ML UDC PO PRN (04:00)
[2024-11-27] MEDS ORDERED: ONDANSETRON HCL/PF 4 MG/2 ML VIAL IVP PRN (04:00)
[2024-11-27] MEDS ORDERED: MAGNESIUM HYDROXIDE 30 ML UDC PO PRN (04:00)
[2024-11-27] MEDS ORDERED: Z GUARD REMEDY 4 OZ OINT TP PRN (04:00)
[2024-11-27 05:25] LABS: PLATELET ESTIMATE DECREASED
[2024-11-27 05:58] LABS: BASOPHILS % (AUTO) 0.8 % (0.0-2.0); EOSINOPHILS % (AUTO) 1.1 % (0.0-6.0); HEMATOCRIT 30 % (39-51); HEMOGLOBIN 10.3 g/dL (13.5-17.5); LYMPHOCYTES # (AUTO) 0.7 K/uL (0.8-4.8); LYMPHOCYTES % (AUTO) 14.9 % (20.0-44.0); MEAN CORPUSCULAR HEMOGLOBIN 29 PG (26.0-33.0); MEAN CORPUSCULAR HGB CONC 34 g/dl (31.0-36.0); MEAN CORPUSCULAR VOLUME 84 fL (80-96); MONOCYTES # (AUTO) 0.5 K/uL (0.1-1.30); MONOCYTES % (AUTO) 10.3 % (2.0-12.0); NEUTROPHILS # (AUTO) 3.2 K/uL (1.8-8.9); NEUTROPHILS % (AUTO) 72.9 % (43.0-81.0); PLATELET COUNT (AUTO) 63 K/uL (150-450); RED BLOOD CELL COUNT(AUTO) 3.57 MIL/uL (4.5-6.0); WHITE BLOOD COUNT (AUTO) 4.4 K/uL (4.3-11.0)
[2024-11-27 06:00] LABS: INR 1.13 (0.91-1.10); PROTHROMBIN TIME 11.9 SECS (9.2-11.1)
[2024-11-27 06:17] LABS: ALBUMIN 2.3 g/dL (3.4-5.0); BILIRUBIN,DIRECT 0.3 mg/dL (0.0-0.2); BILIRUBIN,TOTAL 0.6 mg/dL (0.2-1.0); CALCIUM, SERUM 7.8 mg/dL (8.5-10.1); CREATININE 0.8 mg/dL (0.6-1.3); MAGNESIUM 1.8 mg/dL (1.8-2.4); POTASSIUM 3.9 mmol/L (3.5-5.1); TOTAL PROTEIN, SERUM 5.8 g/dL (6.4-8.2)
[2024-11-27 07:14] LABS: EOSINOPHILS % (MANUAL) 2 % (0-4); LYMPHOCYTES % (MANUAL) 9 % (16-48); MONOCYTES % (MANUAL) 5 % (0-11.0); NEUTROPHILS % (MANUAL) 84 (42-76)
[2024-11-27 07:15] LABS: ANISOCYTOSIS 1+; OVALOCYTES 1+; PLATELET ESTIMATE DECREASED
[2024-11-27] MEDS: LACTULOSE 10 G/15 ML UDC (PYXIS) PO SCH (07:45)
[2024-11-27] MEDS ORDERED: LACTULOSE 10 G/15 ML UDC (PYXIS) ONE (08:02)
[2024-11-27] MEDS: VANCOMYCIN 750 MG in IV D5W 250 ML IV ONE (09:28)
[2024-11-27] MEDS: PANTOPRAZOLE 40 MG VIAL IV SCH (09:28)
[2024-11-27] MEDS: CEFEPIME 2 GM in IV D5W 100 ML IV SCH (12:09)
[2024-11-27] MEDS ORDERED: CLON2TAB11 PO (16:03)
[2024-11-27] MEDS ORDERED: LOPE2TAB25 PO (16:03)
[2024-11-27] MEDS ORDERED: CARI350T27 PO (16:03)
[2024-11-27] MEDS ORDERED: ALPR2TAB7 PO (16:03)
[2024-11-27] MEDS ORDERED: FURO20TA4 PO (16:03)
[2024-11-27] MEDS ORDERED: PROM118S5 PO (16:03)
[2024-11-27] MEDS ORDERED: OXYC10TA49 PO (16:03)
[2024-11-27] MEDS ORDERED: CARISOPRODOL 350 MG TABLET PO PRN (16:30)
[2024-11-27] MEDS: FUROSEMIDE 20 MG TABLET PO SCH (17:23)
[2024-11-27] MEDS: IV NS 0.9% 1,000 ML IV PRN (17:24)
[2024-11-27 20:00] VITALS: BP 118/62; TEMP 98.4; O2SAT 98
[2024-11-27] MEDS: VANCOMYCIN 1 GM in IV D5W 250ml IV SCH (20:06)
[2024-11-27] MEDS: CARISOPRODOL 350 MG TABLET PO PRN (20:34)
[2024-11-27 23:28] VITALS: BP 118/62; TEMP 97.5; O2SAT 98
[2024-11-28] VITALS: BP 129/69; TEMP 99; O2SAT 99
[2024-11-28] MEDS ORDERED: clonazePAM 1 MG TABLET ONE (02:26)
[2024-11-28] MEDS: clonazePAM 2 MG TABLET PO PRN (02:27)
[2024-11-28 04:00] VITALS: BP 123/59; TEMP 98.2; O2SAT 96
[2024-11-28 07:00] VITALS: BP 127/99; TEMP 97.9; O2SAT 97
[2024-11-28 07:06] LABS: CALCIUM, SERUM 7.7 mg/dL (8.5-10.1); CREATININE 0.8 mg/dL (0.6-1.3); MAGNESIUM 1.8 mg/dL (1.8-2.4); PHOSPHORUS 2.4 mg/dL (2.5-4.9); POTASSIUM 3.7 mmol/L (3.5-5.1)
[2024-11-28 07:11] LABS: BASOPHILS % (AUTO) 0.2 % (0.0-2.0); EOSINOPHILS # (AUTO) 0.1 K/uL (0.0-0.7); EOSINOPHILS % (AUTO) 1.3 % (0.0-6.0); HEMATOCRIT 27 % (39-51); HEMOGLOBIN 9.2 g/dL (13.5-17.5); LYMPHOCYTES # (AUTO) 0.7 K/uL (0.8-4.8); LYMPHOCYTES % (AUTO) 16.7 % (20.0-44.0); MEAN CORPUSCULAR HEMOGLOBIN 28 PG (26.0-33.0); MEAN CORPUSCULAR HGB CONC 34 g/dl (31.0-36.0); MEAN CORPUSCULAR VOLUME 83 fL (80-96); MONOCYTES # (AUTO) 0.4 K/uL (0.1-1.30); MONOCYTES % (AUTO) 9.1 % (2.0-12.0); NEUTROPHILS % (AUTO) 72.7 % (43.0-81.0); PLATELET COUNT (AUTO) 76 K/uL (150-450); RED BLOOD CELL COUNT(AUTO) 3.25 MIL/uL (4.5-6.0); RED CELL DISTRIBUTION WIDTH 17.3 % (11.5-15.0); WHITE BLOOD COUNT (AUTO) 4.1 K/uL (4.3-11.0)
[2024-11-28 11:09] LABS: EOSINOPHILS % (MANUAL) 1 % (0-4); LYMPHOCYTES % (MANUAL) 4 % (16-48); MONOCYTES % (MANUAL) 1 % (0-11.0); NEUTROPHILS % (MANUAL) 44 (42-76); PLATELET ESTIMATE DECREASED
[2024-11-28 11:10] LABS: ANISOCYTOSIS 1+; OVALOCYTES 1+
[2024-11-28] MEDS ORDERED: clonazePAM 1 MG TABLET PO PRN (15:00)
[2024-11-28 16:00] VITALS: BP 108/52; TEMP 97.1; O2SAT 96
[2024-11-28] MEDS: K PHOS NEUTRAL 250 MG TABLET PO ONE (16:26)
[2024-11-28 20:00] VITALS: BP 132/71; TEMP 98.4; O2SAT 98
[2024-11-29] VITALS: BP 117/62; TEMP 99; O2SAT 98
[2024-11-29] MEDS: ACETAMINOPHEN 325 MG TABLET PO PRN (01:28)
[2024-11-29 06:44] LABS: BASOPHILS % (AUTO) 1.1 % (0.0-2.0); EOSINOPHILS % (AUTO) 1.4 % (0.0-6.0); HEMATOCRIT 28 % (39-51); HEMOGLOBIN 9.8 g/dL (13.5-17.5); LYMPHOCYTES # (AUTO) 0.5 K/uL (0.8-4.8); LYMPHOCYTES % (AUTO) 18.1 % (20.0-44.0); MEAN CORPUSCULAR HEMOGLOBIN 29 PG (26.0-33.0); MEAN CORPUSCULAR HGB CONC 35 g/dl (31.0-36.0); MEAN CORPUSCULAR VOLUME 83 fL (80-96); MONOCYTES # (AUTO) 0.4 K/uL (0.1-1.30); MONOCYTES % (AUTO) 14.4 % (2.0-12.0); NEUTROPHILS # (AUTO) 1.8 K/uL (1.8-8.9); PLATELET COUNT (AUTO) 60 K/uL (150-450); RED BLOOD CELL COUNT(AUTO) 3.42 MIL/uL (4.5-6.0); RED CELL DISTRIBUTION WIDTH 17.2 % (11.5-15.0); WHITE BLOOD COUNT (AUTO) 2.8 K/uL (4.3-11.0)
[2024-11-29 07:00] VITALS: BP 110/77; TEMP 97.5; O2SAT 96
[2024-11-29 07:09] LABS: CALCIUM, SERUM 8.3 mg/dL (8.5-10.1); CREATININE 0.7 mg/dL (0.6-1.3); MAGNESIUM 1.7 mg/dL (1.8-2.4); PHOSPHORUS 2.3 mg/dL (2.5-4.9); POTASSIUM 3.5 mmol/L (3.5-5.1)
[2024-11-29] MEDS: PANTOPRAZOLE 40 MG TABLET.DR PO SCH (08:43)
[2024-11-29] MEDS ORDERED: CLIN300C12 PO (08:49)
[2024-11-29] MEDS ORDERED: LACT10SO58 PO (08:51)
[2024-11-29] MEDS: THERAHONEY GEL 1.5 OZ TUBE TP SCH (10:46)
[2024-11-29] MEDS: MAGNESIUM OXIDE 400 MG TABLET PO ONE (10:48)
[2024-11-29] MEDS: K PHOS NEUTRAL 250 MG TABLET PO ONE (15:24)
[2024-11-29 18:02] LABS: EOSINOPHILS % (MANUAL) 3 % (0-4); LYMPHOCYTES % (MANUAL) 14 % (16-48); MONOCYTES % (MANUAL) 12 % (0-11.0); NEUTROPHILS % (MANUAL) 71 (42-76)
[2024-11-29 18:03] LABS: OVALOCYTES 1+; PLATELET ESTIMATE DECREASED
== END 2024-11-29 16:43 | disposition hospice, home (50) | DRG 872 ==
LOC: ER 23:57 → TELE 11-27 05:11
PROVIDERS: ATTEND Student in an Organized Health Care Education/Training Program
DX: A41.9 Sepsis, unspecified organism (principal); L03.115 Cellulitis of right lower limb; Z59.00 Homelessness unspecified; E72.20 Disorder of urea cycle metabolism, unspecified; K76.82 Hepatic encephalopathy; I11.0 Hypertensive heart disease with heart failure; K74.60 Unspecified cirrhosis of liver; Z79.899 Other long term (current) drug therapy; E11.40 Type 2 diabetes mellitus with diabetic neuropathy, unspecified; F15.10 Other stimulant abuse, uncomplicated; G40.909 Epilepsy, unspecified, not intractable, without status epilepticus; Z86.73 Personal history of transient ischemic attack (TIA), and cerebral infarction without residual deficits; I50.9 Heart failure, unspecified; Z95.5 Presence of coronary angioplasty implant and graft; I25.10 Atherosclerotic heart disease of native coronary artery without angina pectoris; J45.909 Unspecified asthma, uncomplicated; E11.621 Type 2 diabetes mellitus with foot ulcer; Z87.891 Personal history of nicotine dependence; D64.9 Anemia, unspecified; F41.0 Panic disorder [episodic paroxysmal anxiety]; Z98.890 Other specified postprocedural states; Z94.89 Other transplanted organ and tissue status; Z79.51 Long term (current) use of inhaled steroids; R60.9 Edema, unspecified; L97.522 Non-pressure chronic ulcer of other part of left foot with fat layer exposed
CPT/HCPCS: 36415; 70450-TC; 71045-TC; 80048-TC; 80076-TC; 80202-TC; 81001; 82140-TC; 82962-TC; 83605-TC; 83735-TC; 83880; 84100-TC; 84443-TC; 84484-TC; 85025-TC; 85610-TC; 85730-TC; 87040-TC; 93970-TC; A4223; G0378; G0480; J0692; J2470; J3370; J3371; J7030; J7040; J7050; J7060